=== PATIENT | female | born 1970 | race Caucasian/White ===

== ENCOUNTER → 2016-07-17 | Outpatient (CLI) | payer BC, MEDICAID ==
[~2016-07-17] MED LIST: ALDACTONE; AMPH30CA6 PO; BCP PO; BIRTH CONTROL PILL; CHOL50003 PO; CIPR500T4; CIPR500T78 PO; CODE-54; CPR500T; DCS100C PO; DOCU-143 PO; HYOS0.1218 SL; HYOS0.1283 SL; IBP800T PO; LOSA1TAB23 PO; LVT.05T PO; METR500T PO; METR500T17 PO; MPR22T TP; MTF500T; MTP25TSR; MUPI1OIN5 NS; NABU750T PO; NITR-65 PO; ONDA4TAB8 PO; OXYB5TAB9 PO; OXYC1TAB12 PO; PANT40TA2 PO; PHEN-640 PO; PHEN37.53 PO; PNT40TEC PO; RED600TA PO; SAXA1TBM3 PO; SMXTMP10ML PO; SPIR100T37 PO; SUCR1ORA5 PO; TPR25T PO; TRM50T PO; VITA1TAB17 PO; coconut oil
== END ==
LOC: RAD 08:17
PROVIDERS: ATTEND Nurse Practitioner
DX: M76.72 Peroneal tendinitis, left leg (principal)

== ENCOUNTER → 2016-07-21 | Outpatient (CLI) | payer MEDICAID ==
--- NOTE | 2016-07-21 14:22 | Diagnostic Imaging Report ---
PROCEDURE: CT left lower extremity without contrast. TECHNIQUE: Multiple contiguous axial images were obtained through the left lower extremity without the use of intravenous contrast. Sagittal and coronal reformations were then performed. INDICATION: Left ankle swelling and bruising. COMPARISON: None available. FINDINGS: There is no acute or healing fracture about the ankle. Normal variant os trigonum is present in the posterior aspect of the talus. There is no edema-like attenuation around the os trigonum to suggest impingement in this region. No osteochondral lesion of the talar dome. The peroneal tendons are normal in position. There is suggestion of a small amount of fluid in the common peroneal sheath at the level of the lateral malleolus. The peroneus brevis is intact upon the base of the fifth metatarsal. The peroneus longus is normal where visualized. Distal Achilles tendon is normal by CT. The posterior tibialis, flexor hallucis longus and flexor digitorum longus tendons also appear normal by CT. Anterior extensor tendons are also unremarkable. No ankle joint effusion. The posterior subtalar joint space is well-maintained. No tarsal coalition. Sclerotic focus in the anterior and inferior aspect of the calcaneus is compatible with benign bone island. IMPRESSION: 1. No acute or healing fracture. 2. Suggestion of tenosynovitis of the common peroneal tendon sheath at the level of the lateral malleolus. By CT, the peroneal tendons are otherwise normal in appearance. If patient's symptoms persist and there are not contraindications, MRI of the ankle can better evaluate the soft tissues. Dictated by: Dictated on workstation # [id number]
== END ==
LOC: RAD 13:21
PROVIDERS: ATTEND Nurse Practitioner
DX: M76.72 Peroneal tendinitis, left leg (principal)
CPT/HCPCS: 73700

== ENCOUNTER 2016-08-22 20:55 | Observation (INO) | payer MEDICAID ==
[~2016-08-22] VITALS: Ht 175.3 cm; Wt 154.2 kg
--- NOTE | 2016-08-22 21:04 | ED Chest Pain ---
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 Apparently has been having spells like this of late and is being worked up by her PCP, but has never had an episode as bad as earlier this evening. Spoke c/ Dr. Garcia this PM, and she encouraged her to come in and be seen. Patient states there have some recent concerns regarding possible fibromyalgia, or a tick related illness. 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) Severity/Quality: severe (fatigue) Location: central Radiation: no radiation Activities at Onset: activity (walking into house from car) Prior CP/Workup: no prior cardiac workup Modifying Factors: worse with movement ASA po SURVEY QUESTIONNAIRE DESIGNER: No NTG SL SURVEY QUESTIONNAIRE DESIGNER: No Associated Symptoms: diaphoresis, fatigue, nausea/vomiting (s/ vomiting) Allergies and Home Medications Allergies Coded Allergies: NKANo Known Allergies (Unverified Allergy, Mild, 05/06/09) Home Medications Cholecalciferol 5,000 Unit Tablet, 5,000 UNIT PO DAILY, (Reported) Duloxetine HCl 60 Mg Capsule., #30 (Reported) Estradiol 1 Mg Tablet, #30 (Reported) Hyoscyamine Sulfate 0.125 Mg Tab.subl, 1-2 TAB SL Q4H, #15 Prescribed by: WILLIAM RIBERA on 02/20/162 Levothyroxine Sodium 50 Mcg Tablet, 50 MCG PO DAILY, (Reported) Losartan/Hydrochlorothiazide 1 Each Tablet, 1 EACH PO DAILY, (Reported) Mirabegron 50 Mg Tab.er.24h, #30 (Reported) Montelukast Sodium 10 Mg Tablet, #30 (Reported) Ondansetron 4 Mg Tab.rapdis, 4 MG PO Q4H, #10 Prescribed by: WILLIAM RIBERA on 02/20/16 2222 Pantoprazole Sodium 40 Mg Tablet.dr, 40 MG PO DAILY, #30 Ref 6 Prescribed by: NIK YATES on 12/13/14 0759 Saxagliptin Hcl/Metformin Hcl 1 Each Tbmp.24hr, 1 EACH PO DAILY, (Reported) Sucralfate 1 Gm/10 Ml Oral.susp, 1 GM PO QID, #400 Prescribed by: WILLIAM RIBERA on 02/20/162221 Vitamin B Complex 1 Tab Tablet, 1 TAB PO DAILY, (Reported) Review of Systems Constitutional: see HPI, diaphoresis, malaise Cardiovascular: See HPI, Chest Pain Gastrointestinal: See HPI, Nausea Endocrine: See HPI, Excessive Sweating All Other Systems Reviewed Negative Unless Noted: Yes Past Qwlhacy-Wljfes-Njteuf Hx Patient Social History Recent Foreign Travel: No Contact w/Someone Who Travel: No Recent Hopitalizations: No Seasonal Allergies Seasonal Allergies: No Surgeries HX Surgeries: Yes Surgeries: Bladder Surgery, Hysterectomy, Oophorectomy, Orthopedic, Tonsillectomy Respiratory Hx Respiratory Disorders: No Cardiovascular Hx Cardiac Disorders: Yes Cardiac Disorders: Hypertension Neurological Hx Neurological Disorders: No Reproductive System Hx Reproductive Disorders: No Female Reproductive Disorders: Endometriosis, Polycystic Ovarian Dis 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 Genitourinary Hx Genitourinary Disorders: Yes (has bladder stimulator) Genitourinary Disorders: Bladder Infection, Neurogenic Bladder Gastrointestinal Hx Gastrointestinal Disorders: Yes Gastrointestinal Disorders: Diverticulosis, Ulcer Musculoskeletal Hx Musculoskeletal Disorders: Yes (BACK SX FOR HERNIATED DISC) Musculoskeletal Disorders: Chronic Back Pain Endocrine Hx Endocrine Disorders: Yes (OBESITY) Endocrine Disorders: Hypothyroidsim HEENT HX ENT Disorders: Yes (SURGERY FOR DETATCHED RETINA) Cancer Hx Cancer: No Psychosocial Hx Psychiatric Problems: No Integumentary HX Skin/Integumentary Disorder: No Blood Transfusions Hx Blood Disorders: No Family Medical History Family Medial History: Not obtainable due to adoption Physical Exam Vital Signs Vital Sign - Last 12Hours 08/22/16 21:08 Temp 98.1 Pulse 110 Resp 18 B/P (MAP) 134/101 Pulse Ox 96 O2 Delivery Room Air O2 Flow Rate 2.0 Capillary Refill : General Appearance: No Apparent Distress, WD/WN, Obese HEENT: Normal ENT Inspection Neck: Normal Inspection Respiratory: No Respiratory Distress Cardiovascular: Regular Rate, Rhythm, Tachycardia Gastrointestinal: Non Tender, Other (obese) Rectal: Deferred Neurologic/Psychiatric: Alert, Oriented x3, No Motor/Sensory Deficits, Normal Mood/Affect Skin: Warm/Dry Focused Exam Lactic Acid Level Laboratory Tests Test 08/22/16 21:30 08/22/16 23:49 Lactic Acid Level 2.43 MMOL/L (0.50-2.00) *H 1.03 MMOL/L (0.50-2.00) Progress/Results/Core Measures Results/Orders Lab Results Laboratory Tests Test 08/22/16 21:25 08/22/16 21:30 08/22/16 21:49 08/22/16 23:49 Range/Units Urine Color YELLOW Urine Clarity CLEAR Urine pH 6 5-9 Urine Specific Ericson 1.010 L 1.016-1.022 Urine Protein NEGATIVE NEGATIVE Urine Glucose (UA) NEGATIVE NEGATIVE Urine Ketones NEGATIVE NEGATIVE Urine Nitrite NEGATIVE NEGATIVE Urine Bilirubin 2+ H NEGATIVE Urine Urobilinogen 4 H NORMAL MG/DL Urine Leukocyte Esterase 1+ H NEGATIVE Urine RBC (Auto) NEGATIVE NEGATIVE Urine RBC NONE /HPF Urine WBC 2-5 /HPF Urine Squamous Epithelial Cells 2-5 /HPF Urine Crystals NONE /LPF Urine Bacteria NONE /HPF Urine Casts NONE /LPF Urine Mucus NEGATIVE /LPF Urine Culture Indicated NO White Blood Count 8.6 4.3-11.0 10^3/uL Red Blood Count 4.44 4.35-5.85 10^6/uL Hemoglobin 13.0 11.5-16.0 G/DL Hematocrit 39 35-52 % Mean Corpuscular Volume 89 80-99 FL Mean Corpuscular Hemoglobin 29 25-34 PG Mean Corpuscular Hemoglobin Concent 33 32-36 G/DL Red Cell Distribution Width 14.9 H 10.0-14.5 % Platelet Count 276 130-400 10^3/uL Mean Platelet Volume 10.3 7.4-10.4 FL Neutrophils (%) (Auto) 60 42-75 % Lymphocytes (%) (Auto) 26 12-44 % Monocytes (%) (Auto) 10 0-12 % Eosinophils (%) (Auto) 3 0-10 % Basophils (%) (Auto) 0 0-10 % Neutrophils # (Auto) 5.2 1.8-7.8 X 10^3 Lymphocytes # (Auto) 2.3 1.0-4.0 X 10^3 Monocytes # (Auto) 0.9 0.0-1.0 X 10^3 Eosinophils # (Auto) 0.2 0.0-0.3 10^3/uL Basophils # (Auto) 0.0 0.0-0.1 10^3/uL Erythrocyte Sedimentation Rate 30 H 0-20 MM/HR Sodium Level 140 135-145 MMOL/L Potassium Level 3.5 L 3.6-5.0 MMOL/L Chloride Level 104 98-107 MMOL/L Carbon Dioxide Level 20 L 21-32 MMOL/L Anion Gap 16 H 5-14 MMOL/L Blood Urea Nitrogen 11 7-18 MG/DL Creatinine 1.49 H 0.60-1.30 MG/DL Estimat Glomerular Filtration Rate 38 BUN/Creatinine Ratio 7 Glucose Level 142 H 70-105 MG/DL Lactic Acid Level 2.43 *H 1.03 0.50-2.00 MMOL/L Calcium Level 9.6 8.5-10.1 MG/DL Magnesium Level 2.2 1.8-2.4 MG/DL Total Bilirubin 4.3 H 0.1-1.0 MG/DL Aspartate Amino Transf (AST/SGOT) 197 H 5-34 U/L Alanine Aminotransferase (ALT/SGPT) 316 H 0-55 U/L Alkaline Phosphatase 166 H 40-136 U/L Troponin I < 0.30 <0.30 NG/ML C-Reactive Protein High Sensitivity 2.06 H 0.00-0.50 MG/DL B-Type Natriuretic Peptide 16.2 <100.0 PG/ML Total Protein 7.5 6.4-8.2 G/DL Albumin 4.1 3.2-4.5 G/DL Lipase 10 8-78 U/L Thyroid Stimulating Hormone (TSH) 0.57 0.35-4.94 UIU/ML My Orders Orders - MARK LAGUNAS DO Saline Lock/Iv-Start (08/22/16 21:15) Ekg Tracing (08/22/16 21:15) BNP (08/22/16 21:15) Cbc With Automated Diff (08/22/16 21:15) Comprehensive Metabolic Panel (08/22/16 21:15) Hs C Reactive Protein (08/22/16 21:15) Lactic Acid Analyzer (08/22/16 21:15) Lipase (08/22/16 21:15) Magnesium (08/22/16 21:15) Thyroid Stimulating Hormone (08/22/16 21:15) Tick Panel With Lyme Eia (08/22/16 21:15) Troponin I (08/22/16 21:15) Ua Culture If Indicated (08/22/16 21:15) Blood Culture (08/22/16 21:15) Erythrocyte Sedimentation Rate (08/22/16 21:15) Saline Lock/Iv-Start (08/22/16 22:03) Ns Iv 1000 Ml (Sodium Chloride 0.9%) (08/22/16 22:03) Ct Chest/Abdomen/Pelvis Wo (08/22/16 22:29) Medications Given in ED Current Medications Medications Dose Ordered Sig/Baldemar Route Start Time Stop Time Status Last Admin Dose Admin Sodium Chloride 1,000 ml @ 0 mls/hr Q0M ONCE IV 08/22/16 22:03 08/22/16 22:04 DC 08/22/16 22:10 0 MLS/HR Vital Signs/I&O Vital Sign - Last 12Hours 08/22/16 08/22/16 08/22/16 21:08 21:08 22:00 Temp 98.1 98.1 Pulse 110 98 Resp 18 18 B/P (MAP) 134/101 135/99 Pulse Ox 96 88 O2 Delivery Room Air Nasal Cannula O2 Flow Rate 2.0 2.0 Intake and Output 08/23/16 00:00 Intake Total 1000 ml Balance 1000 ml Diagnostic Imaging Diagonstic Imaging: CT Plain Films/CT/US/NM/MRI: abdomen, pelvis (nothing acute x/ hepatomegaly) Departure Communication Time/Spoke to Admitting Phy: 23:40 Impression Impression: Primary Impression: Fatigue Additional Impressions: Elevated LFT's of UDE Non-cardiac chest pain Elevated lactic acid level Disposition: ADMITTED INPATIENT Condition: Stable Decision to Admit Reason: Admit from ER (General) Decision to Admit/Date: Aug 22, 2016 Time/Decision to Admit Time: 23:40 Departure-Patient Inst. Referrals: TON BOJORQUEZ DO (PCP/Family) Primary Care Physician MARK LAGUNAS DO Aug 22, 2016 21:04
[2016-08-22] MEDS ORDERED: DULO60CA58 (21:08)
[2016-08-22] MEDS ORDERED: MONT10TA24 PO (21:08)
[2016-08-22] MEDS ORDERED: ESTR1TAB24 PO (21:08)
[2016-08-22] MEDS ORDERED: MIRA50TA PO (21:08)
[2016-08-22 21:39] LABS: BASOPHILS % (AUTO) 0 % (0-10); EOSINOPHILS # (AUTO) 0.2 10^3/uL (0.0-0.3); EOSINOPHILS % (AUTO) 3 % (0-10); LYMPHOCYTES # (AUTO) 2.3 X 10^3 (1.0-4.0); LYMPHOCYTES % (AUTO) 26 % (12-44); MEAN CORPUSCULAR HEMOGLOBIN 29 PG (25-34); MEAN CORPUSCULAR HGB CONC 33 G/DL (32-36); MEAN CORPUSCULAR VOLUME 89 FL (80-99); MEAN PLATELET VOLUME 10.3 FL (7.4-10.4); MONOCYTES # (AUTO) 0.9 X 10^3 (0.0-1.0); MONOCYTES % (AUTO) 10 % (0-12); NEUTROPHILS # (AUTO) 5.2 X 10^3 (1.8-7.8); NEUTROPHILS % (AUTO) 60 % (42-75); PLATELET COUNT 276 10^3/uL (130-400); RED BLOOD COUNT 4.44 10^6/uL (4.35-5.85); RED CELL DISTRIBUTION WIDTH 14.9 % (10.0-14.5); WHITE BLOOD COUNT 8.6 10^3/uL (4.3-11.0)
[2016-08-22 21:40] LABS: BILIRUBIN,URINE 2+ (NEGATIVE); KETONES,URINE NEGATIVE (NEGATIVE); LEUKOCYTE ESTERASE ,URINE 1+ (NEGATIVE); NITRITE,URINE NEGATIVE (NEGATIVE); PH,URINE 6 (5-9); PROTEIN,URINE NEGATIVE (NEGATIVE); UROBILINOGEN,URINE 4 MG/DL (NORMAL)
[2016-08-22] MEDS ORDERED: NS IV 1000 ML 1,000 ML IV ONE (22:03)
[2016-08-22 22:09] LABS: ERYTHROCYTE SEDIMENTATION RATE 30 MM/HR (0-20)
[2016-08-22 22:20] LABS: ALANINE AMINOTRANSFERASE 316 U/L (0-55); ALBUMIN 4.1 G/DL (3.2-4.5); ANION GAP 16 MMOL/L (5-14); ASPARTATE AMINO TRANSFERASE 197 U/L (5-34); BILIRUBIN,TOTAL 4.3 MG/DL (0.1-1.0); BLOOD UREA NITROGEN 11 MG/DL (7-18); BUN/CREATININE RATIO 7; CALCIUM 9.6 MG/DL (8.5-10.1); CARBON DIOXIDE 20 MMOL/L (21-32); CHLORIDE 104 MMOL/L (98-107); CREATININE SERUM 1.49 MG/DL (0.60-1.30); GFR ESTIMATED 38; GLUCOSE 142 MG/DL (70-105); LIPASE 10 U/L (8-78); MAGNESIUM 2.2 MG/DL (1.8-2.4); POTASSIUM 3.5 MMOL/L (3.6-5.0); SODIUM 140 MMOL/L (135-145); TOTAL PROTEIN 7.5 G/DL (6.4-8.2); hs C REACTIVE PROTEIN 2.06 MG/DL (0.00-0.50)
[2016-08-22 22:40] LABS: THYROID STIMULATING HORMONE 0.57 UIU/ML (0.35-4.94); TROPONIN I < 0.30 NG/ML (<0.30)
[2016-08-23] MEDS ORDERED: ONDANSETRON 4 MG/2 ML (SDV) Z0FRAN IV PRN (01:45)
[2016-08-23] MEDS: NS W/KCL 20 MEQ/L 1,000 ML IV SCH ×4 (02:00→22:01)
[2016-08-23 04:20] VITALS: BP 121/59
[2016-08-23 06:06] LABS: ALANINE AMINOTRANSFERASE 272 U/L (0-55); ALBUMIN 3.5 G/DL (3.2-4.5); ANION GAP 12 MMOL/L (5-14); ASPARTATE AMINO TRANSFERASE 163 U/L (5-34); BILIRUBIN,TOTAL 3.4 MG/DL (0.1-1.0); BLOOD UREA NITROGEN 8 MG/DL (7-18); BUN/CREATININE RATIO 8; CALCIUM 8.8 MG/DL (8.5-10.1); CARBON DIOXIDE 23 MMOL/L (21-32); CHLORIDE 105 MMOL/L (98-107); CREATININE SERUM 0.97 MG/DL (0.60-1.30); GFR ESTIMATED > 60; GLUCOSE 138 MG/DL (70-105); POTASSIUM 3.6 MMOL/L (3.6-5.0); SODIUM 140 MMOL/L (135-145); TOTAL PROTEIN 6.4 G/DL (6.4-8.2)
[2016-08-23] MEDS: inSUlin (REGULAR) HUMAN 1 UNIT/0.01 ML (CHARGE PER UNIT) SC SCH ×4 (06:11→21:08)
[2016-08-23 08:00] VITALS: BP 132/71
--- NOTE | 2016-08-23 08:53 | History & Physicial ---
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 SHE PRESENTED TO THE EMERGENCY DEPARTMENT WITH ABDOMINAL DISCOMFORT /EPIGASTRIC DISCOMFORT, AND SEVERE WEAKNESS AND FATIGUE. SHE REPORTS THAT SHE HAS BEEN FEELING UNWELL FOR ABOUT 3-4 WEEKS. SHE STATES THAT SHE HAS BEEN SEEN AT URGENT CARE LAST WEEK AND DIAGNOSED WITH A "POSSIBLE" URINARY TRACT INFECTION, STARTED ON BACTRIM DS AND PYRIDIUM, STARTED TO HAVE ITCHING, AND CALLED DR. FERNANDEZ WHO TOLD THE PATIENT TO STOP THE ANTIBIOTIC DUE TO HER SYMPTOMS OF ITCHING. SHE STATES THAT SHE NEVER REALLY HAD URINARY TRACT SYMPTOMS. SHE REPORTS THAT SHE HAD LABS DONE A WEEK OR SO AGO WHICH SHOWED AN ELEVATED WHITE COUNT. SHE DOES NOT RECALL A REPORT OF ELEVATED LIVER ENZYMES. SHE REPORTS THAT HER MEDICATION WAS RECENTLY CHANGED - WITH STOPPING OF HER METFORMIN AND STARTING OF JANUMET INSTEAD. SHE REPORTS THAT SHE IS SUPPOSED TO BE ON CYMBALTA, BUT HAS NOT BEEN ABLE TO AFFORD THE MEDICATION AND HAS NOT BEEN TAKING IT FOR ABOUT 2 MONTHS. SHE COMPLAINS OF SOME ITCHING OF HER SKIN. SHE DENIES ANY ACUTE RASHES. Date of Admission Aug 22, 2016 at 23:50 I consulted on this patient on 08/23/16 08:53 Attending Physician Shweta Fernandez DO Admitting Physician Toney Patino MD Consult Allergies and Home Medications Allergies Coded Allergies: NKANo Known Allergies (Unverified Allergy, Mild, 05/06/09) Home Medications Cholecalciferol 5,000 Unit Tablet, 5,000 UNIT PO DAILY, (Reported) Diclofenac Sod 100 Mg Tab, 100 MG PO BID, (Reported) Duloxetine HCl 60 Mg Capsule., #30 (Reported) Estradiol 1 Mg Tablet, #30 (Reported) Fesoterodine Fumarate 4 Mg Tab.sr.24h, 4 MG PO DAILY, (Reported) Hyoscyamine Sulfate 0.125 Mg Tab.subl, 1-2 TAB SL Q4H, #15 Prescribed by: WILLIAM RIBERA on 02/20/162 Levothyroxine Sodium 50 Mcg Tablet, 50 MCG PO DAILY, (Reported) Losartan/Hydrochlorothiazide 1 Each Tablet, 1 EACH PO DAILY, (Reported) Mirabegron 50 Mg Tab.er.24h, #30 (Reported) Montelukast Sodium 10 Mg Tablet, #30 (Reported) Ondansetron 4 Mg Tab.rapdis, 4 MG PO Q4H, #10 Prescribed by: WILLIAM RIBERA on 02/20/16 2222 Pantoprazole Sodium 40 Mg Tablet.dr, 40 MG PO DAILY, #30 Ref 6 Prescribed by: NIK YATES on 12/13/14 0759 Saxagliptin Hcl/Metformin Hcl 1 Each Tbmp.24hr, 1 EACH PO DAILY, (Reported) Sucralfate 1 Gm/10 Ml Oral.susp, 1 GM PO QID, #400 Prescribed by: WILLIAM RIBERA on 02/20/16 2222 Tramadol HCl 50 Mg Tablet, 50 MG PO q4-6 PRN for PAIN-MILD TO MODERATE, ( Reported) Vitamin B Complex 1 Tab Tablet, 1 TAB PO DAILY, (Reported) Past Xnzbbok-Mjmvbx-Sotayq Hx Patient Social History Marrital Status: Living Status: LIVES AT HOME WITH HER SPOUSE Employed/Student: employed (WORKS AT [employer]) Alcohol Use: Denies Use Recreational Drug Use: No Smoking Status: Never a Smoker 2nd Hand Smoke Exposure: Yes (AT WORK) Physical Abuse Screen: No Sexual Abuse: No Recent Foreign Travel: No Contact w/other who traveled: No Recent Hopitalizations: No Recent Infectious Disease Expo: No Immunizations Up To Date Tetanus Booster (TDap): Less than 5yrs Seasonal Allergies Seasonal Allergies: No Surgeries HX Surgeries: Yes Surgeries: Bladder Surgery, Hysterectomy, Oophorectomy, Orthopedic, Tonsillectomy Respiratory Hx Respiratory Disorders: No Cardiovascular Hx Cardiovascular Disorders: Yes Cardiac Disorders: Hypertension Neurological Hx Neurological Disorders: No Reproductive System : No Hx Reproductive Disorders: No Female Reproductive Disorders: Endometriosis, Polycystic Ovarian Dis 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 Genitourinary Hx Genitourinary Disorders: Yes (has bladder stimulator) Genitourinary Disorders: Bladder Infection, Neurogenic Bladder Gastrointestinal Hx Gastrointestinal Disorders: Yes Gastrointestinal Disorders: Diverticulosis, Ulcer Musculoskeletal Hx Musculoskeletal Disorders: Yes (BACK SX FOR HERNIATED DISC) Musculoskeletal Disorders: Chronic Back Pain Endocrine Hx Endocrine Disorders: Yes (OBESITY) Endocrine Disorders: Hypothyroidsim, Diabetes, Non-Insulin dep HEENT HX ENT Disorders: Yes (SURGERY FOR DETATCHED RETINA) Loss of Vision: Denies Hearing Impairment: Denies Cancer Hx Cancer: No Psychosocial Hx Psychiatric Problems: Yes Behavioral Health Disorders: Depression Integumentary HX Skin/Integumentary Disorder: No Blood Transfusions Hx Blood Disorders: No Adverse Reaction to a Blood Tr: No Reviewed Nursing Assessment Reviewed/Agree w Nursing PMH: Yes Family Medical History Significant Family History: Other Conditions/Hx (PT ADOPTED, NO FAMILY HISTORY AVAILABLE) Family Hx: Not obtainable due to adoption Constitutional: No chills, malaise, weakness EENTM: No blurred vision, No double vision, No hoarseness, No mouth pain, No throat pain Respiratory: No cough, No dyspnea on exertion, No short of breath, No wheezing Cardiovascular: No chest pain, No palpitations Gastrointestinal: abdominal pain (RUQ), No constipation, No diarrhea, No loss of appetite, No melena, No nausea, No vomiting Genitourinary: no symptoms reported, No dysuria, No frequency : No Musculoskeletal: No back pain, No muscle stiffness, muscle weakness Skin: change in color (SLIGHTLY YELLOW), No dryness, No lesions, pruritus, No rash Psychiatric/Neurological: Denies Anxiety, Denies Headache, Denies Numbness, Weakness All Other Systems Reviewed Negative Unless Noted: Yes Physical Exam Vital Signs Vital Sign - Last 12Hours 08/22/16 21:08 Temp 98.1 Pulse 110 Resp 18 B/P (MAP) 134/101 Pulse Ox 96 O2 Delivery Room Air O2 Flow Rate 2.0 Capillary Refill : Less Than 3 Seconds General Appearance: No Apparent Distress, WD/WN, Obese Eyes: Bilateral Eye EOMI, Bilateral Eye Normal Inspection, Bilateral Eye PERRL HEENT: PERRL/EOMI, Pharynx Normal Neck: Full Range of Motion, Supple Respiratory: Chest Non Tender, Lungs Clear, Normal Breath Sounds, No Accessory Muscle Use, No Respiratory Distress Cardiovascular: Regular Rate, Rhythm, No Edema, No Murmur Gastrointestinal: Normal Bowel Sounds, Hepatomegaly, Tenderness (IN RIGHT UPPER QUADRANT, EPIGASTRIUM) Rectal: Deferred Back: Normal Inspection, No CVA Tenderness, No Vertebral Tenderness Extremity: Normal Capillary Refill, Normal Range of Motion, Non Tender, No Calf Tenderness, No Pedal Edema Neurologic/Psychiatric: Alert, Oriented x3, No Motor/Sensory Deficits, Normal 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, 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 HER CT SCAN FINDINGS HAVE NOT YET BEEN FINALIZED ON THE COMPUTER SYSTEM. FATIGUE AND MUSCLE WEAKNESS - SHOULD IMPROVE WITH PATIENT'S HYDRATION, AND IMPROVEMENT OF LIVER ENZYMES. HYPERTENSION - HOLD CURRENT MEDICATION, WILL START ON METFORMIN IF ANTIHYPERTENSIVE MEDICATION IS NEEDED HER CURRENT MEDICATION HAS HEPATIC METABOLISM. DEPRESSION - PT HAS NOT BEEN TAKING HER CYMBALTA, THE METABOLISM IS THROUGH LIVER ENZYME PATHWAYS, THEREFORE, WOULD NOT RESTART AT THIS TIME. URINARY URGE INCONTINENCE - HOLD MYRBETRIQ IT MAY BE HAVING SOME IMPACT ON HEPATIC FAILURE - MONITOR SYMPTOMS, MAY CONSIDER OTHER MEDICATIONS DEPENDING ON METABOLISM AND HER LIVER SYMPTOMS. DIABETES MELLITUS - HOLD DIABETIC MEDICATIONS AT THIS TIME, WITH PT ON LIQUID DIET, MONITOR FSBS, HGBA1C PENDING, IF NEEDED WILL CONSIDER SLIDING SCALE INSULIN. Problems: Admission Diagnosis RIGHT UPPER QUADRANT PAIN ELEVATED LIVER ENZYMES HYPERBILIRUBINEMIA HEPATOMEGALY FATIGUE MUSCLE WEAKNESS ELEVATED LACTIC ACID HYPERTENSION DEPRESSION URINARY URGE INCONTINENCE DIABETES MELLITUS Clinical Quality Measures AMI/AHF: ASA po Prior to arrival: No DVT/VTE Risk/Contraindication: Risk Factor Score Per Nursin RFS Level Per Nursing on Admit: 3=High TONEY PATINO MD Aug 23, 2016 08:53
--- NOTE | 2016-08-23 09:18 | Diagnostic Imaging Report ---
PROCEDURE: CT chest, abdomen, and pelvis without contrast. TECHNIQUE: Multiple contiguous axial images were obtained through the chest, abdomen, and pelvis without the use of intravenous contrast. INDICATION: Chest pain, fatigue, and weakness. COMPARISON: Comparison is made with the prior study from February 20, 2016. FINDINGS: The lungs demonstrate no evidence of a focal consolidation. There is some minor dependent atelectasis at the lung bases. There is no effusion or pneumothorax. There is no evidence of mediastinal adenopathy. The thoracic aorta is normal in caliber and heart size appears normal. There is no pericardial effusion. Hepatomegaly is present with associated steatosis. There is some focal fatty sparing adjacent to the gallbladder. There is no radiodense gallstone or evidence of biliary dilatation. The spleen is unremarkable. There are some small splenules. Pancreas demonstrates some mild atrophy but no focal abnormality. There is stable right adrenal nodule. The kidneys appear nonobstructed without evidence of urolithiasis. There is extensive diverticulosis present with some haziness within the fat about the sigmoid colon which may reflect a mild diverticulitis or colitis. There is no free air, free fluid, or abscess. The appendix is normal. Patient is status post hysterectomy. Urinary bladder is unremarkable. No pathologically enlarged abdominal or pelvic lymph nodes are demonstrated. The aorta is normal in caliber. There are degenerative features within the lumbar spine, but there is no acute or suspicious osseous abnormality demonstrated. A sacral InterStim device is noted. There is a small fat-containing umbilical hernia. IMPRESSION: 1. No acute process is evident within the chest. 2. Extensive colonic diverticulosis with mild haziness around the sigmoid colon suggesting a mild diverticulitis or colitis. There is no free air, free fluid, abscess, or obstruction. 3. Hepatic steatosis and hepatomegaly. 4. Status post previous hysterectomy. 5. Stable right adrenal nodule. Dictated by: Dictated on workstation # [id number]
[2016-08-23 09:32] LABS: THYROID STIMULATING HORMONE 0.46 UIU/ML (0.35-4.94)
[2016-08-23] MEDS ORDERED: FESO4TAB PO (10:03)
[2016-08-23] MEDS ORDERED: NF-DICLOTA PO (10:03)
[2016-08-23] MEDS ORDERED: TRAM-42 PO (10:03)
[2016-08-23] MEDS: ENOXAPARIN 40 MG/0.4 ML (LOVENOX) SYR SC SCH (11:21)
[2016-08-23 12:00] VITALS: BP 124/59
--- NOTE | 2016-08-23 15:41 | Diagnostic Imaging Report ---
PROCEDURE: US Gallbladder. TECHNIQUE: Multiple real-time grayscale images were obtained over the right upper quadrant in various projections. INDICATION: Right upper quadrant pain. COMPARISON: CT chest, abdomen and pelvis without contrast 08/22/2016. FINDINGS: Examination limited by technical limitations related to tissue depth. Hyperechogenicity of the liver consistent with diffuse fatty infiltration. No focal mass or fluid collection in the liver identified. No cholelithiasis. Gallbladder wall thickness measures approximately 2 mm. No pericholecystic fluid collection. The common bile duct and pancreas are obscured. Right kidney is partially visualized and measures approximately 11.5 cm. No evidence of hydronephrosis. Negative sonographic García sign. No free fluid identified in the visualized abdomen. IMPRESSION: 1. Limited examination. 2. Hepatic steatosis. 3. The gallbladder is unremarkable. The common bile duct is obscured. Dictated by: Dictated on workstation # [id number]
[2016-08-23 16:00] VITALS: BP 135/83
[2016-08-23 20:00] VITALS: BP 135/86
[2016-08-23] MEDS: fentaNYL INJECTION 100 MCG/2 ML AMP IVP PRN (21:57)
[2016-08-24] VITALS: BP 122/70
[2016-08-24 04:00] VITALS: BP 119/57
[2016-08-24] MEDS: NS W/KCL 20 MEQ/L 1,000 ML IV SCH ×4 (04:47→19:23)
[2016-08-24 04:55] LABS: MEAN PLATELET VOLUME 10.8 FL (7.4-10.4); RED BLOOD COUNT 4.06 10^6/uL (4.35-5.85); RED CELL DISTRIBUTION WIDTH 15.2 % (10.0-14.5); WHITE BLOOD COUNT 6.3 10^3/uL (4.3-11.0)
[2016-08-24 05:15] LABS: ALANINE AMINOTRANSFERASE 222 U/L (0-55); ALBUMIN 3.1 G/DL (3.2-4.5); ANION GAP 8 MMOL/L (5-14); ASPARTATE AMINO TRANSFERASE 105 U/L (5-34); BILIRUBIN,TOTAL 2.9 MG/DL (0.1-1.0); BLOOD UREA NITROGEN 4 MG/DL (7-18); BUN/CREATININE RATIO 6; CALCIUM 8.5 MG/DL (8.5-10.1); CARBON DIOXIDE 24 MMOL/L (21-32); CHLORIDE 108 MMOL/L (98-107); CREATININE SERUM 0.67 MG/DL (0.60-1.30); GFR ESTIMATED > 60; GLUCOSE 113 MG/DL (70-105); POTASSIUM 4.2 MMOL/L (3.6-5.0); SODIUM 140 MMOL/L (135-145)
[2016-08-24] MEDS: inSUlin (REGULAR) HUMAN 1 UNIT/0.01 ML (CHARGE PER UNIT) SC SCH ×4 (05:43→21:52)
[2016-08-24 08:00] VITALS: BP 150/102
--- NOTE | 2016-08-24 08:29 | Progress Note (SOAP) ---
Subjective Date Seen by Provider: Aug 24, 2016 Time Seen by Provider: 08:29 Subjective/Events-last exam PT REPORTS THAT SHE IS FEELING BETTER. SHE STATES THAT SHE STILL HAS SOME ABDOMINAL PAIN - PAIN IN EPIGASTRIUM. Review of Systems General: Fatigue Pulmonary: No Dyspnea, No Cough Cardiovascular: No: Chest Pain Gastrointestinal: Abdominal Pain (EPIGASTRIUM), No: Nausea Neurological: Weakness, No: Confusion Objective Exam Vital Signs Date Time Temp Pulse Resp B/P (MAP) Pulse Ox O2 Delivery O2 Flow Rate FiO2 08/24/16 07:00 81 08/24/16 04:00 97.3 70 18 119/57 95 08/24/16 01:00 95 08/24/16 00:00 98.2 92 18 122/70 94 08/23/16 20:00 97.3 81 18 135/86 97 08/23/16 19:00 102 08/23/16 16:00 98.0 55 18 135/83 95 08/23/16 13:00 83 08/23/16 12:00 96.6 71 20 124/59 94 I & O 08/24/16 07:00 Intake Total 1860 ml Output Total 2325 ml Balance -465 ml Capillary Refill : Less Than 3 Seconds General Appearance: No Apparent Distress, WD/WN HEENT: PERRL/EOMI, Pharynx Normal Neck: Full Range of Motion, Supple Respiratory: Chest Non Tender, Lungs Clear, Normal Breath Sounds, No Accessory Muscle Use Cardiovascular: Regular Rate, Rhythm, No Edema Gastrointestinal: normal bowel sounds, soft, tenderness (EPIGASTRIUM) Neurologic/Psychiatric: Alert, Oriented x3, No Motor/Sensory Deficits, Normal Mood/Affect Skin: Warm/Dry Lymphatic: No Adenopathy Results Lab Laboratory Tests 08/23/16 10:37: Glucometer 169H 08/23/16 15:27: Glucometer 115H 08/23/16 21:06: Glucometer 159H 08/24/16 04:05: White Blood Count 6.3, Red Blood Count 4.06L, Hemoglobin 11.8, Hematocrit 37, Mean Corpuscular Volume 90, Mean Corpuscular Hemoglobin 29, Mean Corpuscular Hemoglobin Concent 32, Red Cell Distribution Width 15.2H, Platelet Count 213, Mean Platelet Volume 10.8H, Sodium Level 140, Potassium Level 4.2, Chloride Level 108H, Carbon Dioxide Level 24, Anion Gap 8, Blood Urea Nitrogen 4L, Creatinine 0.67, Estimat Glomerular Filtration Rate > 60, BUN/Creatinine Ratio 6 , Glucose Level 113H, Calcium Level 8.5, Total Bilirubin 2.9H, Aspartate Amino Transf (AST/SGOT) 105H, Alanine Aminotransferase (ALT/SGPT) 222H, Alkaline Phosphatase 141H, Total Protein 6.0L, Albumin 3.1L 08/24/16 05:08: Glucometer 120H Microbiology 08/22/16 Blood Culture - Preliminary, Resulted No growth Assessment/Plan Assessment/Plan Assess & Plan/Chief Complaint RIGHT UPPER QUADRANT PAIN ELEVATED LIVER ENZYMES HYPERBILIRUBINEMIA HEPATOMEGALY FATIGUE MUSCLE WEAKNESS ELEVATED LACTIC ACID HYPERTENSION DEPRESSION URINARY URGE INCONTINENCE DIABETES MELLITUS RIGHT UPPER QUADRANT PAIN, ELEVATED LIVER ENZYMES, HYPERBILIRUBINEMIA, HEPATOMEGALY, ELEVATED LACTIC ACID - PT ADMITTED TO THE HOSPITAL WITH ELEVATED LIVER ENZYMES, HEPATOMEGALY AND HYPERBILIRUBINEMIA - WITH HER RIGHT UPPER QUADRANT PAIN, I HAVE ORDERED A GALLBLADDER ULTRASOUND - WHICH WAS NEGATIVE. HER CT SCAN FINDINGS SHOW A POSSIBLE DIVERTICULITIS - STARTED ON FLAGYL. FATIGUE AND MUSCLE WEAKNESS - SHOULD CONTINUE TO IMPROVE WITH PATIENT'S HYDRATION, AND IMPROVEMENT OF LIVER ENZYMES. HYPERTENSION - HOLD CURRENT MEDICATION, WILL START ON METOPROLOL DEPRESSION - PT HAS NOT BEEN TAKING HER CYMBALTA, THE METABOLISM IS THROUGH LIVER ENZYME PATHWAYS, THEREFORE, WOULD NOT RESTART AT THIS TIME. URINARY URGE INCONTINENCE - HOLD MYRBETRIQ IT MAY BE HAVING SOME IMPACT ON HEPATIC FAILURE - MONITOR SYMPTOMS, MAY CONSIDER OTHER MEDICATIONS DEPENDING ON METABOLISM AND HER LIVER SYMPTOMS. DIABETES MELLITUS - HOLD DIABETIC MEDICATIONS AT THIS TIME, WITH PT ON LIQUID DIET, MONITOR FSBS, HGBA1C 5.8 Clinical Quality Measures AMI/AHF: ASA po Prior to arrival: No DVT/VTE Risk/Contraindication: Risk Factor Score Per Nursin RFS Level Per Nursing on Admit: 3=High TONEY PATINO MD Aug 24, 2016 08:29
[2016-08-24] MEDS: ESTRADIOL 1 MG TAB (ESTRACE) PO SCH (09:15)
[2016-08-24] MEDS: LEVOTHYROXINE 50 MCG (LEVOTHROID) TAB PO SCH (09:15)
[2016-08-24] MEDS: metroNIDAZOLE 500MG/100ML IVPB 100 ML IV SCH ×2 (09:15→21:51)
[2016-08-24] MEDS: ENOXAPARIN 40 MG/0.4 ML (LOVENOX) SYR SC SCH (09:16)
[2016-08-24 12:00] VITALS: BP 139/74
[2016-08-24 15:55] VITALS: BP 162/92
[2016-08-24] MEDS: SUCRALFATE 1 GM (CARAFATE) TAB PO SCH ×2 (16:20→21:50)
[2016-08-24 19:51] VITALS: BP 176/95
[2016-08-24] MEDS: fentaNYL INJECTION 100 MCG/2 ML AMP IVP PRN (21:51)
[2016-08-24] MEDS: PANTOPRAZOLE 40 MG/10 ML (PROTONIX) VIAL IV SCH (21:51)
[2016-08-25] VITALS: BP 144/82
[2016-08-25] MEDS: NS W/KCL 20 MEQ/L 1,000 ML IV SCH (03:11)
[2016-08-25 04:00] VITALS: BP 146/85
[2016-08-25 05:09] LABS: MEAN PLATELET VOLUME 10.8 FL (7.4-10.4); RED BLOOD COUNT 3.97 10^6/uL (4.35-5.85); RED CELL DISTRIBUTION WIDTH 14.9 % (10.0-14.5); WHITE BLOOD COUNT 7.4 10^3/uL (4.3-11.0)
[2016-08-25 05:32] LABS: ALANINE AMINOTRANSFERASE 170 U/L (0-55); ALBUMIN 3.2 G/DL (3.2-4.5); ANION GAP 10 MMOL/L (5-14); ASPARTATE AMINO TRANSFERASE 58 U/L (5-34); BILIRUBIN,TOTAL 1.6 MG/DL (0.1-1.0); BLOOD UREA NITROGEN 9 MG/DL (7-18); BUN/CREATININE RATIO 14; CALCIUM 8.6 MG/DL (8.5-10.1); CARBON DIOXIDE 21 MMOL/L (21-32); CHLORIDE 107 MMOL/L (98-107); CREATININE SERUM 0.65 MG/DL (0.60-1.30); GFR ESTIMATED > 60; GLUCOSE 131 MG/DL (70-105); POTASSIUM 4.1 MMOL/L (3.6-5.0); SODIUM 138 MMOL/L (135-145); TOTAL PROTEIN 6.1 G/DL (6.4-8.2)
[2016-08-25] MEDS: SUCRALFATE 1 GM (CARAFATE) TAB PO SCH ×4 (05:54→21:10)
[2016-08-25] MEDS: inSUlin (REGULAR) HUMAN 1 UNIT/0.01 ML (CHARGE PER UNIT) SC SCH ×4 (05:55→21:10)
[2016-08-25 08:00] VITALS: BP 145/79
--- NOTE | 2016-08-25 08:43 | Progress Note (SOAP) ---
Subjective Date Seen by Provider: Aug 25, 2016 (n) Time Seen by Provider: 08:38 Subjective/Events-last exam F/U colitis, fatigue, elevated liver enzymes c/o fatigue and RUQ pain Review of Systems General: Fatigue HEENT: No Head Aches, No Visual Changes, No Eye Pain, No Ear Pain, No Dysphasia , No Sinus Congestion, No Post Nasal Drip, No Sore Throat, No Other Pulmonary: No Dyspnea, No Cough, No Pleuritic Chest Pain, No Other Cardiovascular: No: Chest Pain, Edema, Lt Headedness, Orthopnea, Other, Palpitations, Paroxysmal Noc. Dyspnea Gastrointestinal: Abdominal Pain Genitourinary: Frequency Musculoskeletal: No: arm pain, back pain, foot pain, hand pain, leg pain, neck pain, other, shoulder pain Neurological: Weakness Objective Exam Vital Signs Date Time Temp Pulse Resp B/P (MAP) Pulse Ox O2 Delivery O2 Flow Rate FiO2 08/25/16 04:00 96.9 70 20 146/85 92 08/25/16 01:00 94 08/25/16 00:00 97.3 100 18 144/82 93 08/24/16 20:00 93 08/24/16 19:51 97.1 77 20 176/95 97 08/24/16 19:00 76 08/24/16 15:55 97.5 74 20 162/92 97 08/24/16 13:00 77 08/24/16 12:00 97.7 72 20 139/74 96 I & O 08/25/16 07:00 Intake Total 1780 ml Output Total 4150 ml Balance -2370 ml Capillary Refill : Less Than 3 Seconds General Appearance: No Apparent Distress HEENT: PERRL/EOMI Neck: No Full Range of Motion, No Normal Inspection, No Non Tender, No Supple, No Carotid Bruit, No JVD, No Limited Range of Motion, No Lymphadenopathy (L), No Lymphadenopathy (R), No Tender Lateral, No Tender Midline, No Thyromegaly, No Other Respiratory: Lungs Clear Cardiovascular: Regular Rate, Rhythm Gastrointestinal: normal bowel sounds, soft, tenderness (RUQ and LUQ) Extremity: No Normal Capillary Refill, No Normal Inspection, No Normal Range of Motion, No Non Tender, No No Calf Tenderness, No No Pedal Edema, No Calf Tenderness, No Inflammation, No Pedal Edema, No Pelvis Stable, No Slow Capillary Refill, No Swelling, No Other Neurologic/Psychiatric: Alert Skin: Normal Color, Warm/Dry Results Lab Laboratory Tests 08/24/16 11:38: Glucometer 190H 08/24/16 15:36: Glucometer 112H 08/24/16 21:06: Glucometer 150H 08/25/16 04:54: White Blood Count 7.4, Red Blood Count 3.97L, Hemoglobin 11.4L, Hematocrit 36, Mean Corpuscular Volume 91, Mean Corpuscular Hemoglobin 29, Mean Corpuscular Hemoglobin Concent 32, Red Cell Distribution Width 14.9H, Platelet Count 186, Mean Platelet Volume 10.8H, Sodium Level 138, Potassium Level 4.1, Chloride Level 107, Carbon Dioxide Level 21, Anion Gap 10, Blood Urea Nitrogen 9, Creatinine 0.65, Estimat Glomerular Filtration Rate > 60, BUN/Creatinine Ratio 14, Glucose Level 131H, Calcium Level 8.6, Total Bilirubin 1.6H, Aspartate Amino Transf (AST/SGOT) 58H, Alanine Aminotransferase (ALT/SGPT) 170H, Alkaline Phosphatase 127, Total Protein 6.1L, Albumin 3.2 Microbiology 08/22/16 Blood Culture - Preliminary, Resulted No growth Assessment/Plan Assessment/Plan Assess & Plan/Chief Complaint 1) Colitis- d/c ABX as appears to be viral etiology, D/C IVF 2) Fatigue- improving 3) Elevated liver enzymes- improving Hepatitis and Tick panel pending. 4) Possible discharge-pending finals on both cultures Clinical Quality Measures AMI/AHF: ASA po Prior to arrival: No DVT/VTE Risk/Contraindication: Risk Factor Score Per Nursin RFS Level Per Nursing on Admit: 3=High TON BOJORQUEZ DO Aug 25, 2016 08:42
[2016-08-25] MEDS: PANTOPRAZOLE 40 MG/10 ML (PROTONIX) VIAL IV SCH ×2 (09:57→21:11)
[2016-08-25] MEDS: ENOXAPARIN 40 MG/0.4 ML (LOVENOX) SYR SC SCH (10:00)
[2016-08-25] MEDS: LEVOTHYROXINE 50 MCG (LEVOTHROID) TAB PO SCH (10:00)
[2016-08-25] MEDS: ESTRADIOL 1 MG TAB (ESTRACE) PO SCH (10:01)
[2016-08-25] MEDS ORDERED: LEVO75TA6 PO (11:33)
[2016-08-25] MEDS ORDERED: CNC1KV INJ (11:33)
[2016-08-25] MEDS ORDERED: PANT40TA3 PO (11:33)
[2016-08-25] MEDS ORDERED: NALT1TAB PO (11:33)
[2016-08-25] MEDS ORDERED: SITA1TBM7 PO (11:33)
[2016-08-25] MEDS ORDERED: SPIR100T2 PO (11:33)
[2016-08-25 12:00] VITALS: BP 154/99
[2016-08-25 15:55] VITALS: BP 138/88
[2016-08-25 20:00] VITALS: BP 138/92
[2016-08-26 00:10] VITALS: BP 137/92
[2016-08-26 04:05] VITALS: BP 136/79
[2016-08-26 05:11] LABS: BASOPHILS # (AUTO) 0.1 10^3/uL (0.0-0.1); BASOPHILS % (AUTO) 1 % (0-10); EOSINOPHILS # (AUTO) 0.5 10^3/uL (0.0-0.3); EOSINOPHILS % (AUTO) 5 % (0-10); LYMPHOCYTES % (AUTO) 30 % (12-44); MEAN CORPUSCULAR HEMOGLOBIN 29 PG (25-34); MEAN CORPUSCULAR HGB CONC 33 G/DL (32-36); MEAN CORPUSCULAR VOLUME 90 FL (80-99); MEAN PLATELET VOLUME 11.2 FL (7.4-10.4); MONOCYTES # (AUTO) 0.7 X 10^3 (0.0-1.0); MONOCYTES % (AUTO) 7 % (0-12); NEUTROPHILS # (AUTO) 5.7 X 10^3 (1.8-7.8); NEUTROPHILS % (AUTO) 58 % (42-75); PLATELET COUNT 219 10^3/uL (130-400); RED BLOOD COUNT 4.11 10^6/uL (4.35-5.85); RED CELL DISTRIBUTION WIDTH 14.9 % (10.0-14.5); WHITE BLOOD COUNT 9.9 10^3/uL (4.3-11.0)
[2016-08-26 05:41] LABS: ALANINE AMINOTRANSFERASE 137 U/L (0-55); ALBUMIN 3.4 G/DL (3.2-4.5); ANION GAP 10 MMOL/L (5-14); ASPARTATE AMINO TRANSFERASE 43 U/L (5-34); BILIRUBIN,TOTAL 1.3 MG/DL (0.1-1.0); BLOOD UREA NITROGEN 13 MG/DL (7-18); BUN/CREATININE RATIO 20; CALCIUM 9.3 MG/DL (8.5-10.1); CARBON DIOXIDE 25 MMOL/L (21-32); CHLORIDE 105 MMOL/L (98-107); CREATININE SERUM 0.66 MG/DL (0.60-1.30); GFR ESTIMATED > 60; GLUCOSE 130 MG/DL (70-105); SODIUM 140 MMOL/L (135-145); TOTAL PROTEIN 6.4 G/DL (6.4-8.2)
[2016-08-26] MEDS: inSUlin (REGULAR) HUMAN 1 UNIT/0.01 ML (CHARGE PER UNIT) SC SCH ×2 (06:02→11:23)
[2016-08-26] MEDS: SUCRALFATE 1 GM (CARAFATE) TAB PO SCH ×2 (06:13→10:48)
[2016-08-26 07:36] LABS: TULAREMIA ANTIBODY <1:20
[2016-08-26 08:00] VITALS: BP 149/82
--- NOTE | 2016-08-26 08:56 | Discharge Inst-Simple/Standard ---
Discharge Inst-Standard Patient Instructions/Follow Up Plan of Care/Instructions/FU: Fwup 1 week Activity as Tolerated: Yes Discharge Diet: ADA Diet, Cardiac Diet Other Inst to Patient May return to work on 08/28/16 TON BOJORQUEZ DO Aug 26, 2016 8:56 am
[2016-08-26] MEDS: ESTRADIOL 1 MG TAB (ESTRACE) PO SCH (10:47)
[2016-08-26] MEDS: PANTOPRAZOLE 40 MG/10 ML (PROTONIX) VIAL IV SCH (10:47)
[2016-08-26] MEDS: LEVOTHYROXINE 50 MCG (LEVOTHROID) TAB PO SCH (10:47)
[2016-08-26] MEDS: ENOXAPARIN 40 MG/0.4 ML (LOVENOX) SYR SC SCH (10:48)
[2016-08-26 10:54] LABS: LYME AB G M < 0.01 Index (0.00-0.89)
[2016-08-26 12:00] VITALS: BP 113/90
--- NOTE | 2016-08-26 13:10 | Discharge Summary ---
Diagnosis/Chief Complaint Date of Admission Aug 23, 2016 at 8:52 am Date of Discharge Discharge Date: Aug 26, 2016 Admission Diagnosis Admission Diagnosis RIGHT UPPER QUADRANT PAIN ELEVATED LIVER ENZYMES HYPERBILIRUBINEMIA HEPATOMEGALY FATIGUE MUSCLE WEAKNESS ELEVATED LACTIC ACID HYPERTENSION DEPRESSION URINARY URGE INCONTINENCE DIABETES MELLITUS Discharge Diagnosis 1. Acute Gastroenteritis/Colitis secondary to viral syndrome with elevated LFTs --improving 2. Fatigue--due to acute viral syndrome 3. Hypertension--stable 4. Diabetes mellitus II--BS stable 5. Urinary Incontinence--worsened with IVFs and holding of meds 6. Morbid Obesity--looking into bariatric surgery Discharge Summary Hospital Course Hospital Course This is a 46 year old female who presented to the emergency room with fatigue, nausea and worsening abdominal pain. She was found to have colitis on CT scan of the abdomen and pelvis and elevated liver enzymes. She was admitted and started on Levaquin and Flagyl as well as IVF rehydration for possible early diverticulitis. However, with a normal WBC count and no fever, I stopped the antibiotics the day prior to discharge as her clinical picture looked like a viral syndrome. Her liver enzymes were coming down every day with a high on admission of 197 on AST, 316 on ALT, and 4.3 on bilirubin. They were down to 43 , 137, and 1.3 respectively on the day of discharge. She was tolerating a regular diet with no nausea and no abdominal pain. She was afebrile and her WBC count was normal. She still complained of fatigue. Her hepatitis panel was negative and her tick titers are pending but she has not been on any doxycycline and is clinically improving so I suspect they will be negative. She will be sent home with supportive care and fwup with me in my office in 1 week with recheck of liver enzymes and CBC. Labs Laboratory Tests 08/23/16 15:27: Glucometer 115H 08/23/16 21:06: Glucometer 159H 08/24/16 04:05: Red Blood Count 4.06L, Red Cell Distribution Width 15.2H, Mean Platelet Volume 10.8H, Chloride Level 108H, Blood Urea Nitrogen 4L, Glucose Level 113H, Total Bilirubin 2.9H, Aspartate Amino Transf (AST/SGOT) 105H, Alanine Aminotransferase (ALT/SGPT) 222H, Alkaline Phosphatase 141H, Total Protein 6.0L , Albumin 3.1L 08/24/16 05:08: Glucometer 120H 08/24/16 11:38: Glucometer 190H 08/24/16 15:36: Glucometer 112H 08/24/16 21:06: Glucometer 150H 08/25/16 04:54: Red Blood Count 3.97L, Hemoglobin 11.4L, Red Cell Distribution Width 14.9H, Mean Platelet Volume 10.8H, Glucose Level 131H, Total Bilirubin 1.6H, Aspartate Amino Transf (AST/SGOT) 58H, Alanine Aminotransferase (ALT/SGPT) 170H, Total Protein 6.1L 08/25/16 10:58: Glucometer 170H 08/25/16 15:57: Glucometer 146H 08/25/16 21:02: Glucometer 172H 08/26/16 04:40: Red Blood Count 4.11L, Red Cell Distribution Width 14.9H, Mean Platelet Volume 11.2H, Eosinophils # (Auto) 0.5H, Glucose Level 130H, Total Bilirubin 1.3H, Aspartate Amino Transf (AST/SGOT) 43H, Alanine Aminotransferase (ALT/SGPT) 137H 08/26/16 05:46: Glucometer 119H 08/26/16 11:06: Glucometer 180H Procedures None. Discharge Physical Examination Allergies: Coded Allergies: sulfamethoxazole (Verified Adverse Reaction, Intermediate, RASH/ITCHING, ) trimethoprim (Verified Adverse Reaction, Intermediate, RASH/ITCHING, ) Vitals & I&Os Vital Signs Date Time Temp Pulse Resp B/P (MAP) Pulse Ox O2 Delivery O2 Flow Rate FiO2 08/26/16 08:00 97.9 68 16 149/82 96 08/22/16 22:00 2.0 08/22/16 21:08 Nasal Cannula General Appearance: Alert, Oriented X3, Cooperative, No Acute Distress Respiratory: Clear to Auscultation Cardiovascular: Regular Rate Abdominal: Normal Bowel Sounds, Soft, Other (mild RUQ tenderness) Extremities: No Clubbing, No Cyanosis Skin: No Rashes Neuro: Normal Gait, Normal Speech Psych/Mental Status: Mental Status NL Discharge Home Medications Reviewed and agree with Discharge Medication list on patient's Discharge Instruction sheet Instructions to Patient/Family Please see electonic discharge instructions given to patient. Clinical Quality Measures AMI/AHF: ASA po Prior to arrival: No DVT/VTE Risk/Contraindication: Risk Factor Score Per Nursin RFS Level Per Nursing on Admit: 3=High TON BOJORQUEZ DO Aug 26, 2016 1:10 pm
[2016-08-26 13:33] VITALS: BP 113/90
[2016-08-26 14:58] LABS: LYME AB INTERP Negative (Negative)
[2016-08-26 15:21] LABS: EHRLICHIA CHAFFEENSIS G ABY <1:16 (<1:16)
[2016-08-26 15:23] LABS: IGG ROCKY MOUNTAIN SPOTTED FEV <1:16 (<1:16); IGM ROCKY MOUNTAIN SPOTTED FEV <1:10 (<1:10)
== END 2016-08-26 08:54 | disposition home or self-care (01) ==
LOC: EDUNIT# 20:55 → ER 20:56 → UNDOADMOB 23:50 → 4TH 23:50 → OBSVTOIN 08-23 08:52 → INTOOBSV 08-23 08:52
PROVIDERS: ADMIT Family Medicine; ATTEND Family Medicine
DX: A08.4 Viral intestinal infection, unspecified (principal); R74.8 Abnormal levels of other serum enzymes; E80.6 Other disorders of bilirubin metabolism; R16.0 Hepatomegaly, not elsewhere classified; R53.83 Other fatigue; M62.81 Muscle weakness (generalized); I10 Essential (primary) hypertension; E11.9 Type 2 diabetes mellitus without complications; F32.9 Major depressive disorder, single episode, unspecified; E03.9 Hypothyroidism, unspecified; N39.41 Urge incontinence; E66.01 Morbid (severe) obesity due to excess calories; Z68.43 Body mass index [BMI] 50.0-59.9, adult
CPT/HCPCS: 36415; 71250; 74176; 76705; 80053; 80074; 81000; 82962; 83036; 83605; 83690; 83735; 83880; 84439; 84443; 84484; 85025; 85027; 85652; 86141; 86618; 86666; 86668; 86757; 87040; 96360; G0378

== ENCOUNTER 2016-09-11 11:24 | Outpatient (CLI) | payer MEDICAID ==
[~2016-09-11 11:24] MED LIST changes: +CNC1KV INJ; +DULO60CA58; +ESTR1TAB24 PO; +FESO4TAB PO; +LEVO75TA6 PO; +MIRA50TA PO; +MONT10TA24 PO; +NALT1TAB PO; +NF-DICLOTA PO; +PANT40TA3 PO; +SITA1TBM7 PO; +SPIR100T2 PO; +TRAM-42 PO
== END 2016-09-11 11:47 | disposition home or self-care (01) ==
DX: Z01.818 Encounter for other preprocedural examination (principal); G47.10 Hypersomnia, unspecified; I10 Essential (primary) hypertension; R06.83 Snoring

== ENCOUNTER 2016-10-08 05:35 | Outpatient (CLI) | payer MEDICAID ==
[~2016-10-08] VITALS: Ht 175.3 cm; Wt 154.2 kg
== END 2016-10-08 13:36 ==
LOC: PREOP 05:35
PROVIDERS: ATTEND Surgery
DX: Z01.818 Encounter for other preprocedural examination (principal); K21.9 Gastro-esophageal reflux disease without esophagitis

== ENCOUNTER 2016-10-13 09:35 | Day surgery (SDC) | payer MEDICAID ==
[~2016-10-13] VITALS: Ht 175.3 cm; Wt 154.2 kg
--- NOTE | 2016-10-13 09:57 | Conscious Sedation/ASA ---
Conscious Sedation Pre-Proced Time Reviewed: 09:57 ASA Class: 2 Airway Mallampati Classification: ([place] appropriate class) I. II. III, IV Lungs Heart ASA score ASA 1: a normal healthy patient ASA 2: a patient with a mild systemic disease (mid diabetes, controlled hypertension, obesity ASA 3: a patient with a severe systemic disease that limits activity (angina , COPD, prior Myocardial infarction) ASA 4: a patient with an incapacitating disease that is a constant threat to life (CHF, renal failure) ASA 5: a moribund patient not expected to survive 24 hrs. (ruptured aneurysm) ASA 6: a declared brain patient whose organs are being harvested. For emergent operations, add the letter E after the classification Grade 1 Sedation Plan: Discussed options with patient/fam Note The patient is an appropriate candidate to undergo the planned procedure, sedation, and anesthesia. The patient immediately re-assessed prior to indication. NIK YATES MD Oct 13, 2016 9:57 am
--- NOTE | 2016-10-13 09:57 | History & Physicial ---
History of Present Illness History of Present Illness Reason for visit/HPI to undergo an upper endoscopy with possible balloon dilatation of a recurrent esophageal stricture. Previous dilatation in 2014 with improvement of 4 symptoms. Date of Admission Date Seen by Provider: Oct 13, 2016 Time Seen by Provider: 09:55 I consulted on this patient on 10/13/16 09:55 Attending Physician Nik Conti MD Admitting Physician Shweta Fernandez DO Consult Allergies and Home Medications Allergies Coded Allergies: sulfamethoxazole (Verified Adverse Reaction, Intermediate, RASH/ITCHING, ) trimethoprim (Verified Adverse Reaction, Intermediate, RASH/ITCHING, ) Home Medications Cholecalciferol 5,000 Unit Tablet, 5,000 UNIT PO DAILY, (Reported) Cyanocobalamin 1,000 Mcg/Ml Inj, 1,000 MCG INJ MONTHLY, (Reported) Estradiol 1 Mg Tablet, 1 MG PO DAILY, (Reported) Fesoterodine Fumarate 4 Mg Tab.sr.24h, 4 MG PO DAILY, (Reported) Levothyroxine Sodium 75 Mcg Tablet, 75 MCG PO DAILY, (Reported) Losartan/Hydrochlorothiazide 1 Each Tablet, 1 TAB PO DAILY, (Reported) Mirabegron 50 Mg Tab.er.24h, 50 MG PO DAILY, (Reported) Montelukast Sodium 10 Mg Tablet, 10 MG PO HS, (Reported) Naltrexone HCl/Bupropion HCl 1 Each Tablet.er, 2 TAB PO BID, (Reported) Pantoprazole Sodium 40 Mg Tablet.dr, 40 MG PO BID, (Reported) Past Xqibhtw-Umtjfz-Wqomwu Hx Patient Social History 2nd Hand Smoke Exposure: Yes (AT WORK) Recent Foreign Travel: No Contact w/other who traveled: No Recent Hopitalizations: No Immunizations Up To Date Tetanus Booster (TDap): Less than 5yrs Seasonal Allergies Seasonal Allergies: Yes Surgeries HX Surgeries: Yes (back sx) Surgeries: Bladder Surgery, Hysterectomy, Oophorectomy, Orthopedic, Tonsillectomy Respiratory Hx Respiratory Disorders: No (recent sleep study done-needs a cpap machine- waiting) Cardiovascular Hx Cardiovascular Disorders: Yes Cardiac Disorders: Hypertension Neurological Hx Neurological Disorders: No Reproductive System Hx Reproductive Disorders: No Female Reproductive Disorders: Endometriosis, Polycystic Ovarian Dis 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 Genitourinary Hx Genitourinary Disorders: Yes (has bladder stimulator) Genitourinary Disorders: Bladder Infection, Neurogenic Bladder Gastrointestinal Hx Gastrointestinal Disorders: Yes (dyspagea) Gastrointestinal Disorders: Gastroesophageal Reflux, Diverticulosis, Ulcer Musculoskeletal Hx Musculoskeletal Disorders: Yes (BACK SX FOR HERNIATED DISC) Musculoskeletal Disorders: Chronic Back Pain Endocrine Hx Endocrine Disorders: Yes (OBESITY) Endocrine Disorders: Hypothyroidsim, Diabetes, Non-Insulin dep HEENT HX ENT Disorders: Yes (SURGERY FOR DETATCHED RETINA) Loss of Vision: Denies Hearing Impairment: Denies Cancer Hx Cancer: No Psychosocial Hx Psychiatric Problems: Yes Behavioral Health Disorders: Depression Integumentary HX Skin/Integumentary Disorder: No Blood Transfusions Hx Blood Disorders: No Adverse Reaction to a Blood Tr: No Family Medical History Significant Family History: Other Conditions/Hx Family Hx: Not obtainable due to adoption Constitutional: no symptoms reported EENTM: no symptoms reported Respiratory: no symptoms reported Cardiovascular: no symptoms reported Gastrointestinal: dysphagia, heartburn Genitourinary: no symptoms reported Musculoskeletal: no symptoms reported Skin: no symptoms reported Physical Exam Vital Signs Capillary Refill : General Appearance: No Apparent Distress HEENT: Normal ENT Inspection Neck: Normal Inspection Respiratory: Lungs Clear Cardiovascular: Regular Rate, Rhythm Gastrointestinal: Non Tender, Soft Neurologic/Psychiatric: Alert, Oriented x3 Skin: Warm/Dry Assessment/Plan Assessment and Plan lady with recurrent dysphagia. Previous esophageal stricture. For upper endoscopy and possible balloon dilatation Problems: NIK CONTI MD Oct 13, 2016 9:57 am
[2016-10-13 09:59] VITALS: BP 113/82
[2016-10-13] MEDS ORDERED: NS IV 500 ML 500 ML IV ONE (10:00)
[2016-10-13] MEDS ORDERED: NS IV 500 ML 500 ML ONE (10:01)
[2016-10-13] MEDS ORDERED: LOSA1TAB69 PO (10:53)
[2016-10-13] MEDS ORDERED: LEVO50TA6 PO (10:53)
[2016-10-13] MEDS ORDERED: MIDAZOLAM 2 MG/2 ML (VERSED) VIAL ONE ×4 (10:54→11:15)
[2016-10-13] MEDS ORDERED: HURRICAINE EXT TUBE (BENZOCAINE) ONE (10:54)
[2016-10-13] MEDS ORDERED: fentaNYL INJECTION 100 MCG/2 ML AMP ONE (10:54)
[2016-10-13] MEDS ORDERED: LOSA50TA36 PO (10:55)
[2016-10-13] MEDS ORDERED: SPIR100T2 PO (10:55)
[2016-10-13] MEDS: MIDAZOLAM 2 MG/2 ML (VERSED) VIAL IVP PRN ×4 (11:10→11:19)
[2016-10-13] MEDS: fentaNYL INJECTION 100 MCG/2 ML AMP IVP PRN ×2 (11:11→11:15)
--- NOTE | 2016-10-13 11:32 | Endo Procedure Record ---
Endo Procedure Report Date of Procedure Oct 13, 2016 Surgeon (s) NIK YATES MD Post Procedure/Op Diagnosis 2 mm submucosal nodule at the distal esophagus. Stomach and duodenum normal Procedure Performed EGD with antral biopsy Description of Procedure Anesthesia Type: Conscious Sedation Specimen(s) collected/removed antral mucosa Description of the Procedure Indication for the procedure: This lady came in for an upper endoscopy to evaluate intermittent dysphagia and in preparation for gastric sleeve operation , to manage morbid obesity. Informed consent was obtained after reviewing the procedure in detail. Description of the procedure: She was placed in left lateral decubitus position and her vital signs were monitored. Conscious sedation was achieved using Versed and fentanyl. The flexible gastroscope was then introduced down the esophagus, past the stomach, into the proximal duodenum Findings: Esophagus: A 2 mm submucous nodule at the distal end possibly a lipoma. Photodocumentation was obtained. An endoscopic ultrasound would be arranged for further evaluation. stomach and duodenum were normal. An antral biopsy was obtained for Helicobacter status. She tolerated the procedure well and was taken back to the nursing area in a stable condition. Impression: Intermittent dysphagia. Small submucosal nodule at the distal esophagus. Helicobacter status pending. Copies To: TON BOJORQUEZ XAVIER M MD Oct 13, 2016 11:32 am
--- NOTE | 2016-10-13 11:34 | Discharge Inst-Simple/Standard ---
Discharge Inst-Standard Discharge Medications New, Converted or Re-Newed RX: Other Patient Instructions/Follow Up Plan of Care/Instructions/FU: my office staff will schedule an endoscopic ultrasound and get in touch with her Activity as Tolerated: Yes Discharge Diet: No Restrictions NIK YATES MD Oct 13, 2016 11:34 am
[2016-10-13 11:45] VITALS: BP 136/89
[2016-10-13] MEDS ORDERED: HURRICAINE EXT TUBE (BENZOCAINE) XX ONE (11:45)
[2016-10-13 12:15] VITALS: BP 141/95
[2016-10-13 12:51] VITALS: BP 141/95
== END 2016-10-13 12:50 | disposition home or self-care (01) ==
LOC: ENDO 09:35
PROVIDERS: ATTEND Surgery
DX: R13.10 Dysphagia, unspecified (principal); K22.9 Disease of esophagus, unspecified; I10 Essential (primary) hypertension; E03.9 Hypothyroidism, unspecified; E11.9 Type 2 diabetes mellitus without complications; F32.9 Major depressive disorder, single episode, unspecified

== ENCOUNTER → 2016-12-24 | Outpatient (CLI) | payer MEDICAID ==
[~2016-12-24] VITALS: Ht 175.3 cm; Wt 161.5 kg
[~2016-12-24] MED LIST changes: +CATHETER FLUSH 10 ML SYR IV PRN; +HYOS-19 SL; -HYOS0.1218 SL; +LEVO50TA6 PO; +LOSA1TAB69 PO; +LOSA50TA36 PO; +REGADENOSON 0.4 MG/5 ML SYR (LEXISCAN) IV ONE
[2016-12-24 12:52] VITALS: BP 153/82
--- NOTE | 2016-12-25 09:24 | STRESS TEST ---
DATE OF SERVICE: 12/24/2016 LEXISCAN MYOVIEW STRESS TEST REPORT REFERRING PHYSICIAN: Dr. Fernandez and Dr. Vargas in [facility]. Baseline heart rate is 85, baseline blood pressure 153/82. Baseline EKG is sinus rhythm with no ischemic changes. In summary, the patient was injected with 10.38 mCi of technetium-99 Myoview and the resting images were obtained. Then, the patient received 0.4 mg of Lexiscan followed by 29.9 mCi of technetium-99 Myoview. Throughout the test, there were no EKG changes. The resting and stressed images were reviewed and compared in the short axis, horizontal long axis, and vertical long axis views. Review of the images showed breast attenuation affecting the quality of the images. There is mild decreased uptake involving the mid to apical anterolateral wall with mild reversibility. SSS is 4, SDS is 4, TID value is significantly elevated of 1.49. On the gated images, the left ventricle appeared to be normal size with normal contractility, calculated ejection fraction 59%. CONCLUSION: 1. The patient tolerated Lexiscan well. 2. Breast attenuation affecting the quality of the images, mild decreased uptake at the mid to apical anterolateral wall with subtle reversibility, no significant ischemia was noted. 3. Transient ischemic dilatation with TID value 1.49. 4. Normal left ventricular size with normal contractility. Calculated ejection fraction 59%. Job ID: [id number] DocumentID: [id number] Dictated Date: 12/24/2016 15:36:31 Career Orientation Teacher Date: 12/25/2016 08:06:24 Dictated By: RUDDY ENRIQUEZ MD
== END ==
LOC: CARD 09:43
PROVIDERS: ATTEND Internal Medicine Cardiovascular Disease
DX: R06.09 Other forms of dyspnea; I10 Essential (primary) hypertension; R07.89 Other chest pain; E11.9 Type 2 diabetes mellitus without complications; E03.9 Hypothyroidism, unspecified
CPT/HCPCS: 78452; 93017; 93306

== ENCOUNTER 2017-01-06 13:07 | Day surgery (SDC) | payer MEDICAID ==
[2017-01-06] VITALS (10 sets, daily range): BP systolic 88–143; BP diastolic 58–94
[~2017-01-06] VITALS: Ht 175.3 cm; Wt 161.0 kg
[~2017-01-06 13:07] MED LIST changes: -CATHETER FLUSH 10 ML SYR IV PRN; -REGADENOSON 0.4 MG/5 ML SYR (LEXISCAN) IV ONE
[2017-01-06] MEDS ORDERED: HEParin (CATH LAB) 2,000 ML IV ONE (13:29)
[2017-01-06] MEDS ORDERED: NS IV 1000 ML 1,000 ML ONE (13:29)
[2017-01-06] MEDS ORDERED: NS IV 1000 ML 1,000 ML IV SCH ×2 (13:30→15:00)
[2017-01-06] MEDS ORDERED: NITROGLYCERIN DRIP 25 MG/D5W 250 ML IV ONE (13:43)
[2017-01-06] MEDS ORDERED: VERAPAMIL 5 MG/2 ML (CALAN) VIAL IV ONE (13:43)
[2017-01-06] MEDS ORDERED: fentaNYL INJECTION 100 MCG/2 ML AMP ONE ×2 (13:43→14:33)
[2017-01-06] MEDS ORDERED: MIDAZOLAM 5 MG/5 ML (VERSED) VIAL ONE (13:43)
[2017-01-06] MEDS ORDERED: HEParin 1000 UNIT/ML (10ML VIAL) FOR BOLUS ONE (13:44)
[2017-01-06 14:04] LABS: MEAN PLATELET VOLUME 10.2 FL (7.4-10.4); RED BLOOD COUNT 4.74 10^6/uL (4.35-5.85); WHITE BLOOD COUNT 9.4 10^3/uL (4.3-11.0)
--- NOTE | 2017-01-06 14:17 | Cardiac Procedure Note-CS/ASA ---
Pre-Procedure Note Pre-Op Procedure Note H&P Reviewed The H&P was reviewed, patient examined and no changes noted. Date H&P Reviewed: Jan 06, 2017 Time H&P Reviewed: 14:17 Conscious Sedation Pre-Proced Time Reviewed: 14:17 ASA Class: 3 Airway Mallampati Classification: ([place] appropriate class) I. II. III, IV Lungs Heart ASA score ASA 1: a normal healthy patient ASA 2: a patient with a mild systemic disease (mid diabetes, controlled hypertension, obesity x ASA 3: a patient with a severe systemic disease that limits activity (angina , COPD, prior Myocardial infarction) ASA 4: a patient with an incapacitating disease that is a constant threat to life (CHF, renal failure) ASA 5: a moribund patient not expected to survive 24 hrs. (ruptured aneurysm) ASA 6: a declared brain patient whose organs are being harvested. For emergent operations, add the letter E after the classification Grade 3 Sedation Plan: Analgesia, Amnesia, Plan communicated to team members, Discussed options with patient/fam, Discussed risks with patient/fam Note The patient is an appropriate candidate to undergo the planned procedure, sedation, and anesthesia. The patient immediately re-assessed prior to indication. RUDDY ENRIQUEZ MD Jan 06, 2017 14:17
[2017-01-06 14:20] LABS: PROTHROMBIN TIME PATIENT 13.3 SEC (12.2-14.7)
[2017-01-06] MEDS ORDERED: MIDAZOLAM 2 MG/2 ML (VERSED) VIAL ONE (14:33)
[2017-01-06] MEDS ORDERED: PATIENT MAY USE OWN MEDS, ALL MC SCH (14:45)
[2017-01-06] MEDS ORDERED: INFLUENZA TRIvalent 2017-2018 0.5 ML/45 MCG SYR IM ONE (15:00)
[2017-01-06] MEDS ORDERED: PATIENT MAY USE OWN MEDS, ALL PO SCH (15:00)
--- NOTE | 2017-01-06 15:04 | Cardiac Cath Report ---
Cardiac Cath Report Physician (s)/Production Line Mechanic (s) Physician RUDDY ENRIQUEZ MD Pre-Procedure Diagnosis Pre-Procedure Diagnosis: coronary artery disease, abnormal stress Post-Procedure Note Procedure Start Date: Jan 06, 2017 Procedure Start Time: 14:00 Name of Procedure: coronary angiogram Aortic arch angiogram Findings/Procedure Note PROCEDURE NOTE: After explaining the procedure to the patient, all pros and cons were explained, all questions were answered. The patient signed the consent and then she was placed on the cardiac catheterization laboratory. The patient was placed on the cardiac catheterization laboratory. Groin and wrist was prepped SL fashion local anesthesia was used. Sheath placed in the radial artery Juanita right and left catheter were used to access the coronary system. Pigtail as advanced without crossing the valve, aortic arch angiogram was then Aortic arch angiogram At the end of the procedure the sheath was removed. FINDINGS: Hemodynamics Aorta 116/90 mean of 90 ANATOMY: Left Main is free of obstructive disease Left Anterior Descending is free of obstructive disease Left Circumflex is nondominant with no obstructive disease Right Coronory Artery is dominant with mild disease Aortic arch angiogram showed normal large normal great neck vessels no dissection or aneurysm CONCLUSION: 1. Mild coronary artery disease nonobstructive disease 2. Normal aortic arch and great neck vessels DISCUSSION AND RECOMMENDATION: Medical therapy is recommended to intervention as weren't Anesthesia Type: Conscious Sedation Estimated blood loss (mL): 10 ml Contrast Amount: 50 ml Total Radiation Dose: 840 mGy Post-Procedure Diagnosis Post-operative diagnosis: Coronary artery disease Hypertension Hyperlipidemia RUDDY ENRIQUEZ MD Jan 06, 2017 15:04
--- NOTE | 2017-01-06 15:06 | Discharge Inst-Post CATH ---
Discharge Inst-CATH Post Cardiac Cath D/C Inst Follow Up/Plan Appointment with Dr Azevedo's office in 2-4 weeks CARDIAC CATH DISCHARGE INSTRUCTIONS *Hold Metformin for 48 hours post heart cath. ACTIVITY * Go Home directly and rest. * Limit activity of the leg (or wrist if it was used) for 7 days including aerobics, swimming, jogging, bicycling, etc. * Restrict stair-climbing for 7 days if possible, if not, climb up with your non -cath leg, then bring together on the same step. * Avoid lifting, pushing, pulling or excessive movement of the affected extremity for 7 days. * Customary sexual activity may be resumed after 2 days-use caution not to use a position that strains or causes pain to the affected extremity. * No driving for 24 hours. * NO SMOKING. * Avoid straining for bowel movements for 7 days. * Gentle walking on level ground is allowed. * Returning to work will depend on the type of procedure and the results. Your doctor will discuss this with you. CALL YOUR DOCTOR FOR ANY OF THE FOLLOWING: *If bleeding from the puncture site occurs- Apply gentle pressure to site with clean cloth and call your doctor or EMS. * If a knot or lump forms under the skin, increases in size, or causes pain. * If bruising appears to be worsening or moving further down your leg instead of disappearing. * Temperature above 101 F. CARE OF YOUR GROIN INCISION; * Bruising or purple discoloration of the skin near the puncture site is common. * You may shower only, no bathtub bathing for 5 days. Be careful to avoid slipping as your leg may feel stiff. * If a closure device was used on your femoral artery, please see the attached guide regarding care of the device and your leg. * REMOVE the dressing from your groin the next day after your procedure in the shower. CARE OF YOUR WRIST INCISION; * Bruising or purple discoloration of the skin near the puncture site is common. * You may shower. * DO NOT submerge wrist. * Remove dressing in 24 hours. RUDDY AZEVEDO MD Jan 06, 2017 3:06 pm
[2017-01-06 15:20] LABS: ALANINE AMINOTRANSFERASE 22 U/L (0-55); ALBUMIN 4.1 GM/DL (3.2-4.5); ANION GAP 13 MMOL/L (5-14); ASPARTATE AMINO TRANSFERASE 18 U/L (5-34); BILIRUBIN,TOTAL 0.5 MG/DL (0.1-1.0); BLOOD UREA NITROGEN 10 MG/DL (7-18); BUN/CREATININE RATIO 14; CALCIUM 10.2 MG/DL (8.5-10.1); CARBON DIOXIDE 22 MMOL/L (21-32); CHLORIDE 102 MMOL/L (98-107); CHOLESTEROL 193 MG/DL (< 200); CREATININE SERUM 0.72 MG/DL (0.60-1.30); DIRECT LDL 115 MG/DL (1-129); GFR ESTIMATED > 60; GLUCOSE 117 MG/DL (70-105); POTASSIUM 3.9 MMOL/L (3.6-5.0); SODIUM 137 MMOL/L (135-145); TOTAL PROTEIN 7.9 GM/DL (6.4-8.2); TRIGLYCERIDES 122 MG/DL (<150); VLDL CHOLESTEROL 24 MG/DL (5-40)
== END 2017-01-06 17:30 | disposition home or self-care (01) ==
LOC: INTOOBSV 13:07 → UNDOADMOB 13:07 → CATH 13:07 → ICU 13:07 → EDSTATUS 15:01 → UNDODISOB 17:30 → CATH 17:30
PROVIDERS: ATTEND Internal Medicine Cardiovascular Disease
DX: R07.89 Other chest pain (principal); I25.10 Atherosclerotic heart disease of native coronary artery without angina pectoris; E11.9 Type 2 diabetes mellitus without complications; R06.09 Other forms of dyspnea; I10 Essential (primary) hypertension; R94.39 Abnormal result of other cardiovascular function study; E03.9 Hypothyroidism, unspecified; M79.7 Fibromyalgia; E78.5 Hyperlipidemia, unspecified; Z68.43 Body mass index [BMI] 50.0-59.9, adult; Z79.899 Other long term (current) drug therapy
CPT/HCPCS: 36221; 36415; 80053; 80061; 85027; 85610; 85730; 93005; 93454

== ENCOUNTER → 2017-06-29 | Outpatient (CLI) | payer MEDICAID ==
[~2017-06-29] MED LIST changes: +DICL100T3 PO; +LOSA1TAB20 PO; -LOSA1TAB69 PO; -NF-DICLOTA PO
--- NOTE | 2017-06-30 12:19 | Diagnostic Imaging Report ---
INDICATION: Routine screening. COMPARISON: Comparison is made with prior studies from 03/19/2016 and 12/20/2014. The current study was also evaluated with a Computer Aided Detection (CAD) system. FINDINGS: Both breasts are primarily involutional. There is a small ovoid density noted in the right breast just lateral to the nipple line at anterior depth. No corresponding density on the MLO view is seen. Additional views of this area are recommended. No suspicious microcalcifications are identified. The axillae are unremarkable. IMPRESSION: Right breast density. Additional views including spot compression and rolled CC views are recommended. ACR BI-RADS Category 0: Incomplete. (Needs additional imaging evaluation). Result letter will be mailed to the patient. Note: At least 10% of breast cancer is not imaged by mammography. Dictated by: Dictated on workstation # [id number]
== END ==
LOC: RAD 14:47
PROVIDERS: ATTEND Family Medicine
DX: Z12.31 Encounter for screening mammogram for malignant neoplasm of breast (principal)
CPT/HCPCS: 77067

== ENCOUNTER 2017-07-11 11:39 | Emergency (ER) | payer MEDICAID ==
[~2017-07-11] VITALS: Ht 175.3 cm; Wt 136.1 kg
[2017-07-11 12:09] LABS: BASOPHILS % (AUTO) 0 % (0-10); EOSINOPHILS # (AUTO) 0.1 10^3/uL (0.0-0.3); EOSINOPHILS % (AUTO) 2 % (0-10); HEMATOCRIT 41 % (35-52); HEMOGLOBIN 14.2 G/DL (11.5-16.0); LYMPHOCYTES # (AUTO) 2.8 X 10^3 (1.0-4.0); LYMPHOCYTES % (AUTO) 31 % (12-44); MEAN CORPUSCULAR HEMOGLOBIN 29 PG (25-34); MEAN CORPUSCULAR HGB CONC 34 G/DL (32-36); MEAN CORPUSCULAR VOLUME 84 FL (80-99); MEAN PLATELET VOLUME 10.8 FL (7.4-10.4); MONOCYTES % (AUTO) 11 % (0-12); NEUTROPHILS # (AUTO) 5.1 X 10^3 (1.8-7.8); NEUTROPHILS % (AUTO) 56 % (42-75); PLATELET COUNT 270 10^3/uL (130-400); RED CELL DISTRIBUTION WIDTH 13.7 % (10.0-14.5); WHITE BLOOD COUNT 9.1 10^3/uL (4.3-11.0)
--- NOTE | 2017-07-11 12:17 | Diagnostic Imaging Report ---
INDICATION: Chest pain. Shortness of breath. COMPARISON: Comparison is made with prior examination from 05/15/2014. FINDINGS: The heart size, mediastinal configuration, and pulmonary vascularity are within normal limits. There is no pleural effusion, pneumothorax, or pneumonia. The osseous structures are unremarkable. IMPRESSION: No acute cardiopulmonary abnormality. Dictated by: Dictated on workstation # [id number]
[2017-07-11 12:21] LABS: INR 1.1 (0.8-1.4); PROTHROMBIN TIME PATIENT 13.8 SEC (12.2-14.7)
[2017-07-11 12:23] LABS: BILIRUBIN,URINE NEGATIVE (NEGATIVE); CLARITY,URINE SLIGHTLY CLOUDY; COLOR,URINE YELLOW; GLUCOSE, URINE (UA) NEGATIVE (NEGATIVE); KETONES,URINE NEGATIVE (NEGATIVE); LEUKOCYTE ESTERASE ,URINE NEGATIVE (NEGATIVE); NITRITE,URINE NEGATIVE (NEGATIVE); PH,URINE 7 (5-9); PROTEIN,URINE NEGATIVE (NEGATIVE); UROBILINOGEN,URINE NORMAL (NORMAL)
[2017-07-11 12:30] LABS: ALANINE AMINOTRANSFERASE 40 U/L (0-55); ALBUMIN 4.4 GM/DL (3.2-4.5); ALKALINE PHOSPHATASE 114 U/L (40-136); BUN/CREATININE RATIO 23; CALCIUM 9.9 MG/DL (8.5-10.1); CARBON DIOXIDE 24 MMOL/L (21-32); CHLORIDE 99 MMOL/L (98-107); CREATININE SERUM 0.87 MG/DL (0.60-1.30); GFR ESTIMATED > 60; GLUCOSE 97 MG/DL (70-105); MAGNESIUM 1.9 MG/DL (1.8-2.4); POTASSIUM 3.5 MMOL/L (3.6-5.0); SODIUM 135 MMOL/L (135-145); TOTAL PROTEIN 8.2 GM/DL (6.4-8.2)
[2017-07-11 12:36] LABS: BACTERIA,URINE TRACE /HPF; SQUAMOUS EPITHELIAL CELL,UR 25-50 /HPF; WBC,URINE RARE /HPF
[2017-07-11 12:37] LABS: MYOGLOBIN SERUM 40.7 NG/ML (10.0-92.0)
--- NOTE | 2017-07-11 12:38 | ED Cardiac General ---
History of Present Illness General Chief Complaint: Chest Pain Stated Complaint: CHEST PAIN Nursing Triage Note: PT CO OF CHEST PAIN, STATES HAS BEEN GOING FOR A FEW DAYS, STATES ALSO HAS R LOWER ABD PAIN AT TIMES, STATES HAS HAD FOR A FEW DAYS History of Present Illness Date Seen by Provider: Jul 11, 2017 Time Seen by Provider: 12:00 Initial Comments 47-year-old female presents with chest tightness and diffuse abdominal pain worse on the right side. She reports her symptoms of been going on for over a week, she was concerned and saw her primary care provider requesting a CT of her abdomen for diverticulitis. This has not been completed yet and the patient is concerned. She denies any nausea vomiting or diarrhea. She had bariatric surgery March 2017. She reports passing flatus and no symptoms of GERD. Timing/Duration: intermittent Severity: mild NTG SL DIRECTOR OF AGRONOMY: No ASA po DIRECTOR OF AGRONOMY: No Associated Systoms: Chest Pain; No Cough; Diaphoresis; No Loss of Appetite, No Nausea/Vomiting, No Syncope, No Weakness Allergies and Home Medications Allergies Coded Allergies: sulfamethoxazole (Verified Adverse Reaction, Intermediate, RASH/ITCHING, ) trimethoprim (Verified Adverse Reaction, Intermediate, RASH/ITCHING, ) Home Medications Cholecalciferol 5,000 Unit Tablet, 5,000 UNIT PO DAILY, (Reported) Cyanocobalamin 1,000 Mcg/Ml Inj, 1,000 MCG INJ MONTHLY, (Reported) Estradiol 1 Mg Tablet, 1 MG PO DAILY, (Reported) Fesoterodine Fumarate 4 Mg Tab.sr.24h, 4 MG PO DAILY, (Reported) Levothyroxine Sodium 50 Mcg Tablet, 50 MCG PO DAILY, (Reported) Losartan Potassium 50 Mg Tablet, 50 MG PO DAILY, (Reported) Mirabegron 50 Mg Tab.er.24h, 50 MG PO DAILY, (Reported) Montelukast Sodium 10 Mg Tablet, 10 MG PO HS, (Reported) Naltrexone HCl/Bupropion HCl 1 Each Tablet.er, 1 TAB PO BID, (Reported) Pantoprazole Sodium 40 Mg Tablet.dr, 40 MG PO BID, (Reported) Spironolactone 100 Mg Tablet, 100 MG PO DAILY, (Reported) Sucralfate 1 Gm/10 Ml Oral.susp, 1 GM PO TID Prescribed by: JITENDRA HAN on 07/11/17 1955 Patient Home Medication List Home Medication List Reviewed: Yes Review of Systems Constitutional: no symptoms reported, see HPI Cardiovascular: See HPI, Chest Pain (patient describes more as tightness bilaterally, she reports it to be similar to when she's had pneumonia in the past.) Gastrointestinal: See HPI, Abdominal Pain (generalized); Denies Constipated, Denies Diarrhea, Denies Nausea, Denies Poor Appetite, Denies Poor Fluid Intake, Denies Vomiting Genitourinary: No Symptoms Reported, See HPI All Other Systems Reviewed Negative Unless Noted: Yes Past Nckjngu-Tcmdue-Kukmsa Hx Past Med/Social Hx: Reviewed Nursing Past Med/Soc Hx Patient Social History Alcohol Use: Denies Use Recreational Drug Use: No Smoking Status: Never a Smoker 2nd Hand Smoke Exposure: Yes (AT WORK) Recent Foreign Travel: No Contact w/Someone Who Travel: No Recent Infectious Disease Expo: No Recent Hopitalizations: No Physical Abuse: No Sexual Abuse: No Immunizations Up To Date Tetanus Booster (TDap): Less than 5yrs PED Vaccines UTD: Yes Seasonal Allergies Seasonal Allergies: Yes Past Medical History Surgeries: Yes (BACK SURG, GASTRIC SLEEVE) Bladder Surgery, Hysterectomy, Oophorectomy, Orthopedic, Tonsillectomy Respiratory: No (recent sleep study done-needs a cpap machine-waiting) Cardiac: Yes Hypertension Neurological: No Reproductive Disorders: No Female Reproductive Disorders: Endometriosis, Polycystic Ovarian Dis CREELER History: Hysterectomy Genitourinary: Yes Bladder Infection, Neurogenic Bladder Gastrointestinal: Yes (dyspagea) Gastroesophageal Reflux, Diverticulosis, Ulcer Musculoskeletal: Yes (BACK SX FOR HERNIATED DISC) Chronic Back Pain Endocrine: Yes (OBESITY) Hypothyroidsim, Diabetes, Non-Insulin dep HEENT: No Loss of Vision: Denies Hearing Impairment: Denies Cancer: No Psychosocial: Yes Depression Nursing Suicide Risk Score: 0 Integumentary: No Blood Disorders: No Adverse Reaction/Blood Tranf: No Family Medical History Not obtainable due to adoption Other Conditions/Hx Physical Exam Vital Signs Vital Signs - First Documented 07/11/17 11:41 Temp 94.7 Pulse 92 Resp 18 B/P (MAP) 114/95 (101) Pulse Ox 98 Capillary Refill : Less Than 3 Seconds General Appearance: No Apparent Distress, WD/WN HEENT: PERRL/EOMI, TMs Normal, Normal ENT Inspection, Pharynx Normal Neck: Full Range of Motion, Normal Inspection, Non Tender, Supple Respiratory: Chest Non Tender, Lungs Clear, Normal Breath Sounds Cardiovascular: Regular Rate, Rhythm, No Edema, Normal Peripheral Pulses Gastrointestinal: Normal Bowel Sounds, No Organomegaly, No Pulsatile Mass, Soft ; No Distended, No Guarding; Tenderness (general lysed right upper and lower quadrant with some radiation to the flank) Neurologic/Psychiatric: Alert, Oriented x3, No Motor/Sensory Deficits, Normal Mood/Affect Skin: Normal Color, Warm/Dry Progress/Results/Core Measures Lab Results Laboratory Tests Test 07/11/17 12:00 07/11/17 12:11 Range/Units White Blood Count 9.1 4.3-11.0 10^3/uL Red Blood Count 4.90 4.35-5.85 10^6/uL Hemoglobin 14.2 11.5-16.0 G/DL Hematocrit 41 35-52 % Mean Corpuscular Volume 84 80-99 FL Mean Corpuscular Hemoglobin 29 25-34 PG Mean Corpuscular Hemoglobin Concent 34 32-36 G/DL Red Cell Distribution Width 13.7 10.0-14.5 % Platelet Count 270 130-400 10^3/uL Mean Platelet Volume 10.8 H 7.4-10.4 FL Neutrophils (%) (Auto) 56 42-75 % Lymphocytes (%) (Auto) 31 12-44 % Monocytes (%) (Auto) 11 0-12 % Eosinophils (%) (Auto) 2 0-10 % Basophils (%) (Auto) 0 0-10 % Neutrophils # (Auto) 5.1 1.8-7.8 X 10^3 Lymphocytes # (Auto) 2.8 1.0-4.0 X 10^3 Monocytes # (Auto) 1.0 0.0-1.0 X 10^3 Eosinophils # (Auto) 0.1 0.0-0.3 10^3/uL Basophils # (Auto) 0.0 0.0-0.1 10^3/uL Prothrombin Time 13.8 12.2-14.7 SEC INR Comment 1.1 0.8-1.4 Activated Partial Thromboplast Time 25 24-35 SEC Sodium Level 135 135-145 MMOL/L Potassium Level 3.5 L 3.6-5.0 MMOL/L Chloride Level 99 98-107 MMOL/L Carbon Dioxide Level 24 21-32 MMOL/L Anion Gap 12 5-14 MMOL/L Blood Urea Nitrogen 20 H 7-18 MG/DL Creatinine 0.87 0.60-1.30 MG/DL Estimat Glomerular Filtration Rate > 60 BUN/Creatinine Ratio 23 Glucose Level 97 70-105 MG/DL Calcium Level 9.9 8.5-10.1 MG/DL Magnesium Level 1.9 1.8-2.4 MG/DL Total Bilirubin 1.0 0.1-1.0 MG/DL Aspartate Amino Transf (AST/SGOT) 23 5-34 U/L Alanine Aminotransferase (ALT/SGPT) 40 0-55 U/L Alkaline Phosphatase 114 40-136 U/L Myoglobin 40.7 10.0-92.0 NG/ML Troponin I < 0.30 <0.30 NG/ML Total Protein 8.2 6.4-8.2 GM/DL Albumin 4.4 3.2-4.5 GM/DL Urine Color YELLOW Urine Clarity SLIGHTLY CLOUDY Urine pH 7 5-9 Urine Specific [place] 1.010 L 1.016-1.022 Urine Protein NEGATIVE NEGATIVE Urine Glucose (UA) NEGATIVE NEGATIVE Urine Ketones NEGATIVE NEGATIVE Urine Nitrite NEGATIVE NEGATIVE Urine Bilirubin NEGATIVE NEGATIVE Urine Urobilinogen NORMAL NORMAL MG/DL Urine Leukocyte Esterase NEGATIVE NEGATIVE Urine RBC (Auto) NEGATIVE NEGATIVE Urine RBC NONE /HPF Urine WBC RARE /HPF Urine Squamous Epithelial Cells 25-50 H /HPF Urine Crystals NONE /LPF Urine Bacteria TRACE /HPF Urine Casts NONE /LPF Urine Mucus NEGATIVE /LPF Urine Culture Indicated NO My Orders Orders - GUILLEJITENDRA CHILD'S NURSE Cbc With Automated Diff (07/11/17 11:55) Magnesium (07/11/17 11:55) Chest 1 View, Ap/Pa Only (07/11/17 11:55) Ekg Tracing (07/11/17 11:55) Cardiac Profile 1 (07/11/17 11:55) Comprehensive Metabolic Panel (07/11/17 11:55) Myoglobin Serum (07/11/17 11:55) Protime With Inr (07/11/17 11:55) Partial Thromboplastin Time (07/11/17 11:55) O2 (07/11/17 11:55) Monitor-Rhythm Ecg Trace Only (07/11/17 11:55) Saline Lock/Iv-Start (07/11/17 11:55) Ua Culture If Indicated (07/11/17 12:03) Lidocaine 2% Viscous 15 Ml (Xylocaine Vi (07/11/17 13:00) Antacid Suspension (Mylanta Suspension (07/11/17 13:00) Medications Given in ED Current Medications Medications Dose Ordered Sig/Baldemar Route Start Time Stop Time Status Last Admin Dose Admin Al Hydrox/Mg Hydrox/Simethicone 30 ml ONCE ONCE PO 07/11/17 13:00 07/11/17 13:01 DC 07/11/17 13:41 30 ML Lidocaine HCl 15 ml ONCE ONCE PO 07/11/17 13:00 07/11/17 13:01 DC 07/11/17 13:41 15 ML Vital Signs/I&O 07/11/17 07/11/17 11:41 14:13 Temp 94.7 Pulse 92 103 Resp 18 18 B/P (MAP) 114/95 (101) 111/99 (101) Pulse Ox 98 97 Blood Pressure Mean: 101 Progress Note : Time: 12:00 Progress Note Initial evaluation completed, recommended cardiac labs, UA, aspirin 324 mg chewable and continue monitoring. 1245 reviewed labs with patient, all essentially normal. Chest x-ray normal. Discussed with patient in detail that her labs and exam are not indicative for a CT of the abdomen and pelvis. 1315 patient reexamined, no tenderness to palpation in the abdomen and no CVA tenderness on the right. She is now complaining more of GERD symptoms. Will try a GI cocktail. 1345 patient reports improvement of her symptoms after taking the GI cocktail. Discharge instructions and return precautions reviewed with the patient. Initial ECG Impression Date: Jul 11, 2017 Initial ECG Impression Time: 11:46 Initial ECG Rate: 88 Initial ECG Rhythm: Normal Sinus, PVC Initial ECG Intervals: Normal Initial ECG Intervals AL 160, QRS T 94, QT 384, QTc 465. [place] P 39, QRS 8, T -62. Initial ECG Impression: Normal Initial ECG Comparisson: Unchanged Comment Reviewed EKG with Dr. Roberts, concurred with interpretation. Diagonstic Imaging: Xray Plain Films/CT/US/NM/MRI: chest Comments NAME: DORITA RAO [facility] REC#: [id number] PT STATUS: REG ER : 1970 PHYSICIAN: JITENDRA HAN ADMIT DATE: 07/11/17/ER Draft Date of Exam:07/11/17 CHEST 1 VIEW, AP/PA ONLY INDICATION: Chest pain. Shortness of breath. COMPARISON: Comparison is made with prior examination from 05/15/2014. FINDINGS: The heart size, mediastinal configuration, and pulmonary vascularity are within normal limits. There is no pleural effusion, pneumothorax, or pneumonia. The osseous structures are unremarkable. IMPRESSION: No acute cardiopulmonary abnormality. Dictated on workstation # [id number] Dict: 07/11/17 1211 Trans: 07/11/17 1217 [facility] [id number] Interpreted by: BEATRIZ PENA MD Electronically signed by: Departure Impression Primary Impression: Gastroesophageal reflux disease Qualified Codes: K21.9 - Gastro-esophageal reflux disease without esophagitis Disposition: HOME, SELF-CARE Condition: Stable Departure-Patient Inst. Decision time for Depature: 13:45 Referrals: TON BOJORQUEZ DO (PCP/Family) Primary Care Physician Patient Instructions: Acid Reflux (Gastroesophageal Reflux Disease), Adult (DC) Add. Discharge Instructions: Continue taking her Protonix which is a proton pump inhibitor, add Pepcid 10 mg twice daily, [id number], this is a histamine 2 eloise. Follow-up with your primary care provider if symptoms are not improving or worsen. Return to emergency department for new problems or concerns. All discharge instructions reviewed with patient and/or family. Voiced understanding. Scripts Sucralfate (Carafate) 1 Gm/10 Ml Oral.susp 1 GM PO TID, #210 ML 0 Refills Prov: JITENDRA HAN 07/11/17 Copy Copies To 1: TON BOJORQUEZ AMY ARNP Jul 11, 2017 12:38
[2017-07-11] MEDS ORDERED: LIDOCAINE 2% VISCOUS 15 ML UDC PO ONE (13:00)
[2017-07-11] MEDS ORDERED: ANTACID SUSP 30 ML UDC (MYLANTA) PO ONE (13:00)
[2017-07-11] MEDS ORDERED: SUCR1ORA5 PO (13:47)
[2017-07-11 14:13] VITALS: BP 111/99
== END 2017-07-11 14:13 | disposition home or self-care (01) ==
LOC: EDUNIT# 11:39 → ER 11:40
DX: K21.9 Gastro-esophageal reflux disease without esophagitis (principal); F32.9 Major depressive disorder, single episode, unspecified; E03.9 Hypothyroidism, unspecified; E66.9 Obesity, unspecified; E11.9 Type 2 diabetes mellitus without complications; Z87.19 Personal history of other diseases of the digestive system; Z90.89 Acquired absence of other organs; Z98.84 Bariatric surgery status; Z87.42 Personal history of other diseases of the female genital tract; Z90.710 Acquired absence of both cervix and uterus; Z88.2 Allergy status to sulfonamides; Z88.1 Allergy status to other antibiotic agents; Z77.22 Contact with and (suspected) exposure to environmental tobacco smoke (acute) (chronic); Z98.890 Other specified postprocedural states; Z87.440 Personal history of urinary (tract) infections; Z87.39 Personal history of other diseases of the musculoskeletal system and connective tissue; Z68.41 Body mass index [BMI] 40.0-44.9, adult
CPT/HCPCS: 36415; 71045; 80053; 81000; 83735; 83874; 84484; 85025; 85610; 85730; 93041

== ENCOUNTER → 2017-08-05 | Outpatient (CLI) | payer MEDICAID ==
--- NOTE | 2017-08-05 12:24 | Diagnostic Imaging Report ---
PROCEDURE: US Gallbladder. TECHNIQUE: Multiple Real-time grayscale images were obtained over the right upper quadrant in various projections. INDICATION: Right upper quadrant pain. FINDINGS: The pancreas is poorly visualized due to patient body habitus and bowel gas. The liver is enlarged at 21.3 cm. No discrete liver mass is detected. The gallbladder is without stones or sludge. No wall thickening or pericholecystic fluid is seen. The extrahepatic bile duct is obscured. No intrahepatic ductal dilatation is seen. The right kidney is unremarkable. There is no ascites. IMPRESSION: 1. Hepatomegaly. 2. No evidence of cholelithiasis or acute cholecystitis. Dictated by: Dictated on workstation # [id number]
== END ==
LOC: RAD 08:17
PROVIDERS: ATTEND Family Medicine
DX: R16.0 Hepatomegaly, not elsewhere classified (principal)
CPT/HCPCS: 76705

== ENCOUNTER → 2017-09-18 | Outpatient (CLI) | payer MEDICAID ==
[~2017-09-18] MED LIST changes: -SPIR100T2 PO; +SPIR100T4 PO
--- NOTE | 2017-09-18 08:03 | Diagnostic Imaging Report ---
PROCEDURE: US abdomen complete. TECHNIQUE: Multiple real-time grayscale images were obtained over the abdomen in various projections. INDICATION: Right abdominal pain Liver measures 22 cm in length without evidence of focal abnormality. Gallbladder wall thickness is 0.3 cm. There is no evidence of intraluminal filling defect or pericholecystic fluid. Large portions of the gallbladder and pancreas are obscured by overlying bowel. There is no evidence of splenic abnormality. Retroperitoneum is also obscured without evidence of aortic, inferior vena caval or renal abnormality. There is no evidence of hydronephrosis or perinephric fluid collection. No free fluid is seen in the abdomen. IMPRESSION: No acute abnormality identified, however, the amount of bowel gas does limit evaluation. Dictated by: Dictated on workstation # [id number]
== END ==
LOC: RAD 06:51
PROVIDERS: ATTEND Family Medicine
DX: R10.11 Right upper quadrant pain (principal); R10.12 Left upper quadrant pain; R10.31 Right lower quadrant pain
CPT/HCPCS: 76700

== ENCOUNTER → 2017-10-02 | Outpatient (CLI) | payer MEDICAID ==
--- NOTE | 2017-10-02 14:37 | Diagnostic Imaging Report ---
INDICATION: Abdominal pain, greatest on the right side. TIME OF EXAM: 2:46 PM FINDINGS: The bowel gas pattern is nonobstructive. No free air is seen. No pathologic calcifications are seen. There appears to be stimulator in the left pelvis. IMPRESSION: No acute features detected. Dictated by: Dictated on workstation # [id number]
== END ==
LOC: RAD 14:15
PROVIDERS: ATTEND Family Medicine
DX: K59.00 Constipation, unspecified (principal)
CPT/HCPCS: 74018

== ENCOUNTER → 2018-10-20 | Outpatient (CLI) | payer MEDICAID ==
[~2018-10-20] MED LIST changes: -DICL100T3 PO; +DICL100T83 PO; -LOSA50TA36 PO; +LOSA50TA63 PO
--- NOTE | 2018-10-20 17:45 | Diagnostic Imaging Report ---
INDICATION: Routine screening. Comparison is made with prior mammograms from 06/29/2017 and 03/19/2016. 2-D and 3-D bilateral screening mammography was performed. The current study was also evaluated with a Computer Aided Detection (CAD) system. 3-D tomosynthesis was also performed and reviewed. FINDINGS: Scattered fibroglandular densities are identified bilaterally. The parenchymal pattern is stable. No dominant mass or malignant-appearing microcalcifications are seen. The axillae are unremarkable. IMPRESSION: No mammographic features suspicious for malignancy are identified. ACR BI-RADS Category 1: Negative. Result letter will be mailed to the patient. Note: At least 10% of breast cancer is not imaged by mammography. Dictated by: Dictated on workstation # [id number]
== END ==
LOC: RAD 11:16
PROVIDERS: ATTEND Family Medicine
DX: Z12.31 Encounter for screening mammogram for malignant neoplasm of breast (principal)
CPT/HCPCS: 77067

== ENCOUNTER → 2019-10-31 | Outpatient (CLI) | payer MEDICAID ==
[~2019-10-31] MED LIST changes: -DULO60CA58; +DULO60CA59; -MONT10TA24 PO; +MONT10TA26 PO
--- NOTE | 2019-10-31 08:54 | Diagnostic Imaging Report ---
INDICATION: Routine screening. COMPARISON: 10/20/2018 and 06/29/2017. TECHNIQUE: 2D and 3D bilateral screening mammography was performed with CAD. FINDINGS: Scattered fibroglandular densities are identified bilaterally. The parenchymal pattern is stable. No mass or malignant appearing microcalcifications are seen. The axillae are unremarkable. IMPRESSION: No mammographic features suspicious for malignancy are identified. ACR BI-RADS Category 1: Negative. Result letter will be mailed to the patient. Note: At least 10% of breast cancer is not imaged by mammography. Dictated by: Dictated on workstation # [id number]
== END ==
LOC: RAD 07:15
PROVIDERS: ATTEND Nurse Practitioner Family
DX: Z12.31 Encounter for screening mammogram for malignant neoplasm of breast (principal)
CPT/HCPCS: 77063; 77067

== ENCOUNTER 2020-07-04 05:37 | Outpatient (CLI) | payer BC ==
[~2020-07-04] VITALS: Ht 175.3 cm; Wt 113.6 kg
[~2020-07-04 05:37] MED LIST changes: -MONT10TA26 PO; +MONT10TA32 PO; -PANT40TA3 PO; +PANT40TA52 PO
[2020-07-04] MEDS ORDERED: LOSA100T57 PO (10:59)
== END 2020-07-04 11:02 | disposition home or self-care (01) ==
LOC: PREOP 05:37
PROVIDERS: ATTEND Specialist
DX: Z01.818 Encounter for other preprocedural examination (principal)

== ENCOUNTER 2020-07-06 11:35 | Day surgery (SDC) | payer BC ==
[~2020-07-06] VITALS: Ht 175.2 cm; Wt 113.6 kg
[~2020-07-06 11:35] MED LIST changes: +LOSA100T57 PO
[2020-07-06] MEDS ORDERED: MOXIFLOXACIN OPHTH SOLN 5 MG/ML 0.3 ML SYRINGE OP ONE (11:45)
[2020-07-06] MEDS ORDERED: TIMOLOL MALEATE 0.5% 5 ML (TIMOPTIC) BTL OU PRN (11:45)
[2020-07-06] MEDS ORDERED: POVIDONE (BETADINE) OPHTH SOLN 5% 30 ML OP ONE (11:45)
[2020-07-06] MEDS ORDERED: LIDOCAINE PF 1% 2 ML VIAL IR PRN (11:45)
[2020-07-06] MEDS: TETRACAINE 0.5% OPHTH SOLN 4 ML BTL (SINGLE DOSE ONLY) OU PRN ×4 (11:49→12:12)
--- NOTE | 2020-07-06 11:54 | Ophthalmologist Pre-Op Note ---
Pre-Operative Progress Note H&P Reviewed The H&P was reviewed, patient examined and no changes noted. Date H&P Reviewed: Jul 06, 2020 Time H&P Reviewed: 11:54 Pre-Op Dx Cataract, Right Eye RUMA YBARRA MD Jul 06, 2020 11:54
[2020-07-06] MEDS: TROPICAMIDE 1% OPH SOLN (MYDRIACYL) 15 ML BTL OP SCH ×3 (12:02→12:12)
[2020-07-06] MEDS: PHENYLEPHRINE 10% OPHTH (NEO-SYN) 5 ML BTL OU SCH ×3 (12:02→12:12)
[2020-07-06 12:08] VITALS: BP 139/84
[2020-07-06] MEDS ORDERED: MIDAZOLAM 2 MG/2 ML (VERSED) VIAL ONE (12:10)
--- NOTE | 2020-07-06 12:34 | Ophthalmology Operative Report ---
Cataract removal/placement IOL PREOPERATIVE DIAGNOSIS: Cataract Right Eye POSTOPERATIVE DIAGNOSIS: Cataract Right Eye PROCEDURE: Cataract removal and placement of posterior chamber implant, right eye SURGEON: Abram Ybarra ANESTHESIA: Topical with sedation COMPLICATIONS: None ESTIMATED BLOOD LOSS: Minimal DESCRIPTION OF PROCEDURE: After proper informed consent was obtained, the patient, a 50 female, was taken to the Operating Room and the right eye was anesthetized with tetracaine. The right eye was then prepped and draped in the usual manner. A wire lid speculum was placed. A paracentesis was made at the left hand position. Preservative free lidocaine was injected into the anterior chamber followed by viscoelastic. A clear corneal incision was made in the temporal position. A capsulorrhexis was preformed and the central nuclear and cortical material were removed. The posterior capsule was polished and Yrn 6.0 AU00T0 IOL was placed into the capsular bag. The residual viscoelastic was aspirated and balanced saline solution was injected into the anterior chamber. Moxifloxacin was injected into the anterior chamber. The wound was checked and found to be water tight. The patient tolerated the procedure well without complications. ABRAM YBARRA MD Jul 06, 2020 12:34
--- NOTE | 2020-07-06 12:42 | Anesthesia-General Post-Op ---
MAC Patient Condition Mental Status/LOC: Same as Preop Cardiovascular: Satisfactory Nausea/Vomiting: Absent Respiratory: Satisfactory Pain: Controlled Complications: Absent Post Op Complications Complications None Follow Up Care/Instructions Patient Instructions None needed. Anesthesiology Discharge Order Discharge Order Patient is doing well, no complaints, stable vital signs, no apparent adverse anesthesia problems. No complications reported per nursing. APARNA ABDI CRNA Jul 06, 2020 12:42
[2020-07-06 12:44] VITALS: BP 121/63
[2020-07-06] MEDS ORDERED: acetaZOLAMIDE ER 500 MG CAP (DIAMOX SEQUELS) PO ONE (13:00)
== END 2020-07-06 12:46 | disposition home or self-care (01) ==
LOC: SDC 11:35
PROVIDERS: ATTEND Specialist
DX: H25.11 Age-related nuclear cataract, right eye (principal); M79.7 Fibromyalgia; Z88.2 Allergy status to sulfonamides; Z88.1 Allergy status to other antibiotic agents; Z79.899 Other long term (current) drug therapy; Z83.3 Family history of diabetes mellitus
CPT/HCPCS: 66984; V2632

== ENCOUNTER 2020-07-27 11:06 | Day surgery (SDC) | payer BC ==
[~2020-07-27] VITALS: Ht 175 cm; Wt 113.6 kg
[~2020-07-27 11:06] MED LIST changes: -DICL100T83 PO; +NF-DICLOTA PO
[2020-07-27] MEDS ORDERED: MOXIFLOXACIN OPHTH SOLN 5 MG/ML 0.3 ML SYRINGE OP ONE (11:15)
[2020-07-27] MEDS ORDERED: POVIDONE (BETADINE) OPHTH SOLN 5% 30 ML OP ONE (11:15)
[2020-07-27] MEDS ORDERED: TIMOLOL MALEATE 0.5% 5 ML (TIMOPTIC) BTL OU PRN (11:15)
[2020-07-27] MEDS ORDERED: LIDOCAINE PF 1% 2 ML VIAL IR PRN (11:15)
[2020-07-27] MEDS: TETRACAINE 0.5% OPHTH SOLN 4 ML BTL (SINGLE DOSE ONLY) OU PRN ×4 (11:22→11:42)
[2020-07-27] MEDS: TROPICAMIDE 1% OPH SOLN (MYDRIACYL) 15 ML BTL OP SCH ×3 (11:28→11:42)
[2020-07-27] MEDS: PHENYLEPHRINE 10% OPHTH (NEO-SYN) 5 ML BTL OU SCH ×3 (11:28→11:42)
[2020-07-27 11:37] VITALS: BP 131/80
[2020-07-27] MEDS ORDERED: MIDAZOLAM 2 MG/2 ML (VERSED) VIAL ONE (11:43)
--- NOTE | 2020-07-27 11:46 | Ophthalmologist Pre-Op Note ---
Pre-Operative Progress Note H&P Reviewed The H&P was reviewed, patient examined and no changes noted. Date H&P Reviewed: July 27, 2020 Time H&P Reviewed: 11:46 Pre-Op Dx Cataract, Left Eye RUMA YBARRA MD July 27, 2020 11:46
--- NOTE | 2020-07-27 12:09 | Ophthalmology Operative Report ---
Cataract removal/placement IOL PREOPERATIVE DIAGNOSIS: Cataract Left Eye POSTOPERATIVE DIAGNOSIS: Cataract Left Eye PROCEDURE: Cataract removal and placement of posterior chamber implant, left eye SURGEON: Abram Ybarra ANESTHESIA: Topical with sedation COMPLICATIONS: None ESTIMATED BLOOD LOSS: Minimal DESCRIPTION OF PROCEDURE: After proper informed consent was obtained, the patient, a 50 female, was taken to the Operating Room and the left eye was anesthetized with tetracaine. The left eye was then prepped and draped in the usual manner. A wire lid speculum was placed. A paracentesis was made at the left hand position. Preservative free lidocaine was injected into the anterior chamber followed by viscoelastic. A clear corneal incision was made in the temporal position. A capsulorrhexis was preformed and the central nuclear and cortical material were removed. The posterior capsule was polished and an Yrn 7.5 AU00T0 was placed into the capsular bag. The residual viscoelastic was aspirated and balanced saline solution was injected into the anterior chamber. Moxifloxacin was injected into the anterior chamber. The wound was checked and found to be water tight. The patient tolerated the procedure well without complications. ABRAM YBARRA MD July 27, 2020 12:09
[2020-07-27 12:15] VITALS: BP 134/85
[2020-07-27] MEDS ORDERED: acetaZOLAMIDE ER 500 MG CAP (DIAMOX SEQUELS) PO ONE (12:30)
--- NOTE | 2020-07-27 13:04 | Anesthesia-General Post-Op ---
MAC Patient Condition Mental Status/LOC: Same as Preop Cardiovascular: Satisfactory Nausea/Vomiting: Absent Respiratory: Satisfactory Pain: Controlled Complications: Absent Post Op Complications Complications None Follow Up Care/Instructions Patient Instructions None needed. Anesthesiology Discharge Order Discharge Order Patient is doing well, no complaints, stable vital signs, no apparent adverse anesthesia problems. No complications reported per nursing. KINDRA HOGAN CRNA July 27, 2020 13:04
== END 2020-07-27 12:16 | disposition home or self-care (01) ==
LOC: SDC 11:06
PROVIDERS: ATTEND Specialist
DX: H25.12 Age-related nuclear cataract, left eye (principal); I10 Essential (primary) hypertension; E66.9 Obesity, unspecified; Z68.37 Body mass index [BMI] 37.0-37.9, adult; Z79.899 Other long term (current) drug therapy; Z98.890 Other specified postprocedural states; Z88.2 Allergy status to sulfonamides; Z88.1 Allergy status to other antibiotic agents
CPT/HCPCS: 66984; V2632

== ENCOUNTER 2020-09-30 13:16 | Emergency (ER) | payer BC ==
[~2020-09-30] VITALS: Ht 175 cm; Wt 117.9 kg
[2020-09-30] MEDS ORDERED: LACTATED RINGERS 1,000 ML IV STA (14:41)
[2020-09-30] MEDS ORDERED: LACTATED RINGERS 1,000 ML IV ONE (14:42)
[2020-09-30 14:46] LABS: BASOPHILS % (AUTO) 0 % (0-10); EOSINOPHILS # (AUTO) 0.2 10^3/uL (0.0-0.3); EOSINOPHILS % (AUTO) 2 % (0-10); HEMATOCRIT 40 % (35-52); LYMPHOCYTES # (AUTO) 3.6 10^3/uL (1.0-4.0); LYMPHOCYTES % (AUTO) 39 % (12-44); MEAN CORPUSCULAR HEMOGLOBIN 31 pg (25-34); MEAN CORPUSCULAR HGB CONC 33 g/dL (32-36); MEAN CORPUSCULAR VOLUME 96 fL (80-99); MEAN PLATELET VOLUME 9.9 fL (9.0-12.2); MONOCYTES # (AUTO) 0.7 10^3/uL (0.0-1.0); MONOCYTES % (AUTO) 8 % (0-12); NEUTROPHILS # (AUTO) 4.6 10^3/uL (1.8-7.8); NEUTROPHILS % (AUTO) 51 % (42-75); PLATELET COUNT 214 10^3/uL (130-400); WHITE BLOOD COUNT 9.1 10^3/uL (4.3-11.0)
--- NOTE | 2020-09-30 14:47 | ED General ---
General Chief Complaint: Fever-Adult/Adol Stated Complaint: FEVER/WEAKNESS/SOB Source of Information: Patient Exam Limitations: No Limitations History of Present Illness Date Seen by Provider: Sep 30, 2020 Time Seen by Provider: 14:33 Initial Comments Here with report of fatigue as well as weakness and some shortness of breath. She denies actually having fever and states 98.7 was her highest temperature. States that she works at the [employer] and they are not requiring mouse there. She apparently took somebody to [facility] yesterday to get tested for COVID-19. That person was ultimately positive. She was also tested yesterday and it was negative. She has been having the symptoms for a week now. She has been vaccinated in June with the [employer] vaccine and has received both doses. States onset 1 week ago and then got a little better and then got worse again on Thursday and Thursday and today. Denies dysuria or diarrhea. Eating and drinking okay. Does have a runny nose that started this morning. The contact yesterday was in her car. She and the other person were both mask and she was in the front seat by the other person was in the backseat. Timing/Duration: 1 Week, Getting Worse Severity: Moderate Associated Systoms: Cough; No Fever/Chills, No Headaches; Loss of Appetite, Malaise; No Nausea/Vomiting, No Rash; Shortness of Air, Weakness Allergies and Home Medications Allergies Coded Allergies: sulfamethoxazole (Verified Adverse Reaction, Intermediate, RASH/ITCHING, 08/25/16) trimethoprim (Verified Adverse Reaction, Intermediate, RASH/ITCHING, 08/25/16) Home Medications Estradiol 1 Mg Tablet, 1 MG PO DAILY, (Reported) Losartan Potassium 100 Mg Tablet, 100 MG PO DAILY, (Reported) Spironolactone 100 Mg Tablet, 100 MG PO DAILY, (Reported) Patient Home Medication List Home Medication List Reviewed: Yes Review of Systems Review of Systems Constitutional: see HPI; No chills, No fever EENTM: see HPI; No throat pain Respiratory: see HPI Cardiovascular: No chest pain, No edema Gastrointestinal: No abdominal pain, No nausea, No vomiting Genitourinary: no symptoms reported All Other Systems Reviewed Negative Unless Noted: Yes Past Vivpwtr-Kgfaac-Uvdmvk Hx Patient Social History Tobacco Use?: No Substance use?: No Alcohol Use?: No Immunizations Up To Date Tetanus Booster (TDap): Less than 5yrs PED Vaccines UTD: Yes Seasonal Allergies Seasonal Allergies: Yes Past Medical History Surgeries: Yes (BACK SURG, GASTRIC SLEEVE) Bladder Surgery, Hysterectomy, Oophorectomy, Orthopedic, Tonsillectomy Respiratory: No (recent sleep study done-needs a cpap machine-waiting) Cardiac: Yes Hypertension Neurological: No Reproductive Disorders: No Female Reproductive Disorders: Endometriosis, Polycystic Ovarian Dis 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 Genitourinary: Yes Bladder Infection, Neurogenic Bladder Gastrointestinal: Yes (dyspagea) Gastroesophageal Reflux, Diverticulosis, Ulcer Musculoskeletal: Yes (BACK SX FOR HERNIATED DISC) Chronic Back Pain Endocrine: Yes (OBESITY) Hypothyroidsim, Diabetes, Non-Insulin dep HEENT: No Loss of Vision: Denies Hearing Impairment: Denies Cancer: No Psychosocial: Yes Depression Integumentary: No Blood Disorders: No Adverse Reaction/Blood Tranf: No Family Medical History Reviewed Nursing Family Hx Not obtainable due to adoption Other Conditions/Hx Physical Exam Vital Signs Vital Signs - First Documented 09/30/20 14:38 Temp 35.8 Pulse 75 Resp 20 B/P (MAP) 155/94 (114) Pulse Ox 99 Capillary Refill : Height, Weight, BMI Height: 5'9.00" Weight: 300lbs. 0.0oz. 136.084090gj; 52.4 BMI Method:Estimated General Appearance: No Apparent Distress, WD/WN, Obese HEENT: PERRL/EOMI, Pharynx Normal Neck: Non Tender, Supple Respiratory: Lungs Clear, Normal Breath Sounds Cardiovascular: Regular Rate, Rhythm, No Murmur Gastrointestinal: Non Tender, Soft Back: Normal Inspection, No CVA Tenderness, No Vertebral Tenderness Neurologic/Psychiatric: Alert, Oriented x3 Skin: Normal Color, Warm/Dry Progress/Results/Core Measures Suspected Sepsis SIRS Temperature: Pulse: Respiratory Rate: Laboratory Tests 09/30/20 14:41: White Blood Count 9.1 Blood Pressure / Mean: Laboratory Tests 09/30/20 14:41: Creatinine 0.74, Platelet Count 214, Total Bilirubin 0.2 Results/Orders Lab Results Laboratory Tests Test 09/30/20 13:35 09/30/20 14:41 09/30/20 15:07 Range/Units Influenza Type A (RT-PCR) Not Detected Not Detecte Influenza Type B (RT-PCR) Not Detected Not Detecte SARS-CoV-2 RNA (RT-PCR) Not Detected Not Detecte White Blood Count 9.1 4.3-11.0 10^3/uL Red Blood Count 4.19 3.80-5.11 10^6/uL Hemoglobin 13.0 11.5-16.0 g/dL Hematocrit 40 35-52 % Mean Corpuscular Volume 96 80-99 fL Mean Corpuscular Hemoglobin 31 25-34 pg Mean Corpuscular Hemoglobin Concent 33 32-36 g/dL Red Cell Distribution Width 12.5 10.0-14.5 % Platelet Count 214 130-400 10^3/uL Mean Platelet Volume 9.9 9.0-12.2 fL Immature Granulocyte % (Auto) 0 % Neutrophils (%) (Auto) 51 42-75 % Lymphocytes (%) (Auto) 39 12-44 % Monocytes (%) (Auto) 8 0-12 % Eosinophils (%) (Auto) 2 0-10 % Basophils (%) (Auto) 0 0-10 % Neutrophils # (Auto) 4.6 1.8-7.8 10^3/uL Lymphocytes # (Auto) 3.6 1.0-4.0 10^3/uL Monocytes # (Auto) 0.7 0.0-1.0 10^3/uL Eosinophils # (Auto) 0.2 0.0-0.3 10^3/uL Basophils # (Auto) 0.0 0.0-0.1 10^3/uL Immature Granulocyte # (Auto) 0.0 0.0-0.1 10^3/uL D-Dimer 0.27 0.00-0.49 UG/ML Sodium Level 140 135-145 MMOL/L Potassium Level 4.0 3.6-5.0 MMOL/L Chloride Level 108 H 98-107 MMOL/L Carbon Dioxide Level 23 21-32 MMOL/L Anion Gap 9 5-14 MMOL/L Blood Urea Nitrogen 14 7-18 MG/DL Creatinine 0.74 0.60-1.30 MG/DL Estimat Glomerular Filtration Rate > 60 BUN/Creatinine Ratio 19 Glucose Level 100 70-105 MG/DL Calcium Level 8.9 8.5-10.1 MG/DL Corrected Calcium 9.0 8.5-10.1 MG/DL Total Bilirubin 0.2 0.1-1.0 MG/DL Aspartate Amino Transf (AST/SGOT) 15 5-34 U/L Alanine Aminotransferase (ALT/SGPT) 13 0-55 U/L Alkaline Phosphatase 63 40-136 U/L C-Reactive Protein High Sensitivity 0.08 0.00-0.50 MG/DL B-Type Natriuretic Peptide 81.4 <100.0 PG/ML Total Protein 7.2 6.4-8.2 GM/DL Albumin 3.9 3.2-4.5 GM/DL Procalcitonin 0.01 <0.10 NG/ML TSH [place] Testing 0.65 0.35-4.94 UIU/ML Urine Color YELLOW Urine Clarity CLEAR Urine pH 6.0 5-9 Urine Specific [place] 1.025 H 1.016-1.022 Urine Protein NEGATIVE NEGATIVE Urine Glucose (UA) NEGATIVE NEGATIVE Urine Ketones NEGATIVE NEGATIVE Urine Nitrite NEGATIVE NEGATIVE Urine Bilirubin NEGATIVE NEGATIVE Urine Urobilinogen 1.0 < = 1.0 MG/DL Urine Leukocyte Esterase NEGATIVE NEGATIVE Urine RBC (Auto) TRACE-I NEGATIVE Urine RBC RARE /HPF Urine WBC 0-2 /HPF Urine Squamous Epithelial Cells 0-2 /HPF Urine Crystals NONE /LPF Urine Bacteria NEGATIVE /HPF Urine Casts NONE /LPF Urine Mucus NEGATIVE /LPF Urine Culture Indicated NO My Orders Orders - CARLA LAMBERT MD Covid 19 Inhouse Test (09/30/20 13:29) Influenza A And B By Pcr (09/30/20 13:29) Ua Culture If Indicated (09/30/20 14:41) Lactated Ringers (Lr 1000 Ml Iv Solution (09/30/20 14:41) Lactated Ringers (Lr 1000 Ml Iv Solution (09/30/20 14:42) Thyroid Analyzer (09/30/20 16:22) Vital Signs/I&O 09/30/20 14:38 Temp 35.8 Pulse 75 Resp 20 B/P (MAP) 155/94 (114) Pulse Ox 99 Capillary Refill : Progress Note : Progress Note Seen and evaluated. IV, labs, UA, chest x-ray, COVID-19 testing and influenza testing ordered. LR 1 L bolus due to history of hypokalemia. Monitor patient. 1625: No acute findings on any of the testing. In further discussion we will go ahead and add thyroid studies now. She is eating and drinking well in the room. We will see with the results of that are. Monitor patient. 1719: Thyroid studies are normal. Overall she is doing a little better with fluids. This may be nonspecific viral syndrome. No indication for admission. I will send a copy of the chart to Dr. Fernandez. She will follow up with her later this week. Discharged home with return precautions. Patient verbalized understanding of instructions and agreement with plan. Diagnostic Imaging Diagonstic Imaging: Xray Plain Films/CT/US/NM/MRI: chest Comments NAME: DORITA RAO [facility] REC#: [id number] PT STATUS: REG ER : 1970 PHYSICIAN: ALFREDO VERDE APRN ADMIT DATE: 09/30/20/ER Draft Date of Exam:09/30/20 CHEST 1 VIEW, AP/PA ONLY INDICATION: cough. TECHNIQUE: Single view chest 2:47 PM. CORRELATION STUDY: 07/11/2017 FINDINGS: The heart size, mediastinal configuration and pulmonary vascularity are within normal limits. The lungs are clear with no consolidating infiltrate. There is no significant effusion or pneumothorax. IMPRESSION: 1. Negative portable chest. Dictated on workstation # [id number] Dict: 09/30/20 1445 Trans: 09/30/20 1445 DO [id number] Interpreted by: QUINN PLEITEZ DO Electronically signed by: Departure Impression Primary Impression: Fatigue Qualified Codes: R53.83 - Other fatigue Disposition: 01 HOME, SELF-CARE Condition: Stable Departure-Patient Inst. Decision time for Depature: 17:19 Referrals: TON FERNANDEZ DO (PCP/Family) Primary Care Physician Patient Instructions: Fatigue (DC) Add. Discharge Instructions: All discharge instructions reviewed with patient and/or family. Voiced unde rstanding. Continue home medications as directed. Get plenty of rest. Drink plenty of fluids and eat a normal diet. Follow-up with your doctor later this week for recheck and further evaluation. Return for worsening symptoms, fever, vomiting, weakness, breathing problems, loss of taste or smell or other concerns as needed. Work/School Note: Work Release Form Date Seen in the Emergency Department: Sep 30, 2020 Return to Work: Oct 03, 2020 Restrictions: No Restrictions Copy Copies To 1: TON FERNANDEZ TIMOTHY D MD Sep 30, 2020 14:47
[2020-09-30 15:04] LABS: ALANINE AMINOTRANSFERASE 13 U/L (0-55); ALBUMIN 3.9 GM/DL (3.2-4.5); ALKALINE PHOSPHATASE 63 U/L (40-136); BILIRUBIN,TOTAL 0.2 MG/DL (0.1-1.0); BUN/CREATININE RATIO 19; CALCIUM 8.9 MG/DL (8.5-10.1); CARBON DIOXIDE 23 MMOL/L (21-32); CHLORIDE 108 MMOL/L (98-107); CREATININE SERUM 0.74 MG/DL (0.60-1.30); GFR ESTIMATED > 60; GLUCOSE 100 MG/DL (70-105); SODIUM 140 MMOL/L (135-145); TOTAL PROTEIN 7.2 GM/DL (6.4-8.2)
[2020-09-30 15:15] LABS: BILIRUBIN,URINE NEGATIVE (NEGATIVE); CLARITY,URINE CLEAR; COLOR,URINE YELLOW; GLUCOSE, URINE (UA) NEGATIVE (NEGATIVE); KETONES,URINE NEGATIVE (NEGATIVE); LEUKOCYTE ESTERASE ,URINE NEGATIVE (NEGATIVE); NITRITE,URINE NEGATIVE (NEGATIVE); PROTEIN,URINE NEGATIVE (NEGATIVE)
[2020-09-30 15:46] LABS: RBC,URINE RARE /HPF; WBC,URINE 0-2 /HPF
[2020-09-30 15:47] LABS: BACTERIA,URINE NEGATIVE /HPF; SQUAMOUS EPITHELIAL CELL,UR 0-2 /HPF
[2020-09-30 17:27] VITALS: BP 154/74
== END 2020-09-30 17:27 | disposition home or self-care (01) ==
LOC: EDUNIT# 13:16 → ER 13:18
DX: R53.83 Other fatigue (principal); E66.9 Obesity, unspecified; I10 Essential (primary) hypertension; E11.9 Type 2 diabetes mellitus without complications; Z20.822 Contact with and (suspected) exposure to COVID-19; Z68.43 Body mass index [BMI] 50.0-59.9, adult; Z79.899 Other long term (current) drug therapy
CPT/HCPCS: 36415; 71045; 80053; 81000; 83880; 84145; 84443; 85025; 85379; 86141; 87636

== ENCOUNTER → 2021-03-04 | Outpatient (CLI) | payer BC ==
[~2021-03-04] MED LIST changes: +MONT-40 PO; -MONT10TA32 PO; -PHEN37.53 PO; +PHEN37.58 PO
--- NOTE | 2021-03-04 15:44 | Diagnostic Imaging Report ---
INDICATION: Covid neg, dyspnea. COMPARISON: 09/30/2020. FINDINGS: Frontal and lateral views of the chest demonstrate normal heart size and pulmonary vascularity. The lungs are clear. There are no signs of infiltrate, pleural effusions or pneumothoraces. The visualized osseous structures show no acute abnormalities. IMPRESSION: No acute process. No signs of infiltrates, effusions, or pneumothoraces. Dictated by: Dictated on workstation # [id number]
== END ==
LOC: RAD 14:39
PROVIDERS: ATTEND Family Medicine
DX: R06.00 Dyspnea, unspecified (principal); Z20.822 Contact with and (suspected) exposure to COVID-19
CPT/HCPCS: 71046

== ENCOUNTER 2021-03-10 17:13 | Emergency (ER) | payer BC ==
[~2021-03-10] VITALS: Ht 175 cm; Wt 113.0 kg
[2021-03-10] MEDS ORDERED: ASPIRIN 81 MG CHEW (CHILDREN'S ASA) PO ONE (17:30)
[2021-03-10 17:31] LABS: BILIRUBIN,URINE NEGATIVE (NEGATIVE); CLARITY,URINE CLEAR; COLOR,URINE YELLOW; GLUCOSE, URINE (UA) NEGATIVE (NEGATIVE); KETONES,URINE NEGATIVE (NEGATIVE); LEUKOCYTE ESTERASE ,URINE NEGATIVE (NEGATIVE); NITRITE,URINE NEGATIVE (NEGATIVE); PH,URINE 6.5 (5-9); PROTEIN,URINE NEGATIVE (NEGATIVE)
[2021-03-10 17:45] LABS: BACTERIA,URINE NEGATIVE /HPF; SQUAMOUS EPITHELIAL CELL,UR 0-2 /HPF
[2021-03-10 17:48] LABS: BASOPHILS # (AUTO) 0.1 10^3/uL (0.0-0.1); BASOPHILS % (AUTO) 1 % (0-10); EOSINOPHILS # (AUTO) 0.3 10^3/uL (0.0-0.3); EOSINOPHILS % (AUTO) 3 % (0-10); HEMATOCRIT 41 % (35-52); HEMOGLOBIN 13.3 g/dL (11.5-16.0); LYMPHOCYTES % (AUTO) 40 % (12-44); MEAN CORPUSCULAR HEMOGLOBIN 30 pg (25-34); MEAN CORPUSCULAR HGB CONC 33 g/dL (32-36); MEAN CORPUSCULAR VOLUME 92 fL (80-99); MEAN PLATELET VOLUME 10.6 fL (9.0-12.2); MONOCYTES # (AUTO) 0.9 10^3/uL (0.0-1.0); MONOCYTES % (AUTO) 9 % (0-12); NEUTROPHILS # (AUTO) 4.7 10^3/uL (1.8-7.8); NEUTROPHILS % (AUTO) 47 % (42-75); PLATELET COUNT 251 10^3/uL (130-400); WHITE BLOOD COUNT 9.9 10^3/uL (4.3-11.0)
--- NOTE | 2021-03-10 17:54 | ED Cardiac General ---
History of Present Illness General Chief Complaint: Chest Pain Stated Complaint: SOB/HEART FLUTTERING/CHEST PRESSURE History of Present Illness Date Seen by Provider: Mar 10, 2021 Time Seen by Provider: 17:10 Initial Comments 50-year-old female reports having symptoms of shortness of air, weakness, malaise and occasional cough since 03/02/2021. She received her COVID vaccines in June 2020. She was tested for Covid and strep on 03/04/2021 and was found to be negative. She was started on an albuterol inhaler, her last use was yesterday. She wears CPAP and has been unable to because of shortness of air at night. She has no history of DVTs or PEs. She is not on anticoagulants or aspirin. She had a stress test in 2016 prior to bariatric surgery which was negative. She does not see cardiology. Reports intermittent palpitations and flutter in chest. She denies chest pain. She monitors her SaO2 regularly and it si 95-100%, her pulse has been 70-105. No family members have similar symptoms. Patient anxious about symptoms, enquiring about having CT of heart and stress test in ED. She has an elderly friend staying with her, who is a retired nurse providing her possibilities of her symptoms and she has been looking her symptoms up on [employer]. Timing/Duration: 6-7 days Severity: mild Prior CP/Workup: no prior chest pain NTG SL TOWER FOREMAN: No ASA po TOWER FOREMAN: No Associated Systoms: No Chest Pain, No Cough, No Diaphoresis, No Fever/Chills, No Headaches, No Loss of Appetite; Malaise; No Nausea/Vomiting, No Rash, No Seizure; Shortness of Air; No Syncope; Weakness Allergies and Home Medications Allergies Coded Allergies: sulfamethoxazole (Verified Adverse Reaction, Intermediate, RASH/ITCHING, 08/25/16) trimethoprim (Verified Adverse Reaction, Intermediate, RASH/ITCHING, 08/25/16) Patient Home Medication List Home Medication List Reviewed: Yes Estradiol (Estradiol Tablet) 1 Mg Tablet, 1 MG PO DAILY, (Reported) Entered as Reported by: JAYLENE COLLAZO on 08/22/162107 Losartan Potassium (Losartan Potassium) 100 Mg Tablet, 100 MG PO DAILY, (Reported) Entered as Reported by: ANGEL LOWERY on 07/04/20 1059 Spironolactone (Spironolactone) 100 Mg Tablet, 100 MG PO DAILY, (Reported) Entered as Reported by: ANGEL LOWERY on 10/13/16 1055 Review of Systems Review of Systems Constitutional: see HPI; No dizziness, No fever; malaise, weakness EENTM: No Symptoms Reported, See HPI Respiratory: See HPI, Cough, Shortness of Air, SOA With Exertion; Denies Wheezing Cardiovascular: See HPI; Denies Chest Pain; Palpitations Gastrointestinal: No Symptoms Reported, See HPI Genitourinary: No Symptoms Reported, See HPI Musculoskeletal: no symptoms reported, see HPI Skin: no symptoms reported, see HPI Psychiatric/Neurological: No Symptoms Reported, See HPI All Other Systems Reviewed Negative Unless Noted: Yes Past Ntxqeyi-Mfslch-Jicfpi Hx Immunizations Up To Date Tetanus Booster (TDap): Less than 5yrs PED Vaccines UTD: Yes Seasonal Allergies Seasonal Allergies: Yes Past Medical History Surgeries: Yes (BACK SURG, GASTRIC SLEEVE) Bladder Surgery, Hysterectomy, Oophorectomy, Orthopedic, Tonsillectomy Respiratory: No (recent sleep study done-needs a cpap machine-waiting) Cardiac: Yes Hypertension Neurological: No Reproductive Disorders: No Female Reproductive Disorders: Endometriosis, Polycystic Ovarian Dis 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 Genitourinary: Yes Bladder Infection, Neurogenic Bladder Gastrointestinal: Yes (dyspagea) Gastroesophageal Reflux, Diverticulosis, Ulcer Musculoskeletal: Yes (BACK SX FOR HERNIATED DISC) Chronic Back Pain Endocrine: Yes (OBESITY) Hypothyroidsim, Diabetes, Non-Insulin dep HEENT: No Loss of Vision: Denies Hearing Impairment: Denies Cancer: No Psychosocial: Yes Depression Integumentary: No Blood Disorders: No Adverse Reaction/Blood Tranf: No Family Medical History Reviewed Nursing Family Hx Not obtainable due to adoption Other Conditions/Hx Physical Exam Vital Signs Vital Signs - First Documented 03/10/21 03/10/21 17:20 19:00 Temp 36.8 Pulse 82 Resp 20 B/P (MAP) 157/94 (115) Pulse Ox 100 O2 Delivery Room Air Capillary Refill : Height, Weight, BMI Height: 5'9.00" Weight: 300lbs. 0.0oz. 136.289344qd; 38.00 BMI Method:Estimated General Appearance: WD/WN, Anxious HEENT: PERRL/EOMI, TMs Normal, Normal ENT Inspection, Pharynx Normal Neck: Full Range of Motion, Normal Inspection, Non Tender, Supple Respiratory: Chest Non Tender, Lungs Clear, Normal Breath Sounds, No Accessory Muscle Use, No Respiratory Distress Cardiovascular: Regular Rate, Rhythm, No Edema, No Murmur, Normal Peripheral Pulses Gastrointestinal: Normal Bowel Sounds, Non Tender, Soft Extremity: Normal Capillary Refill, Normal Inspection, Normal Range of Motion, Non Tender, No Calf Tenderness, No Pedal Edema; No Calf Tenderness Neurologic/Psychiatric: Alert, Oriented x3, No Motor/Sensory Deficits, Normal Mood/Affect Skin: Normal Color, Warm/Dry Progress/Results/Core Measures Results/Orders Lab Results Laboratory Tests Test 03/10/21 17:22 03/10/21 17:37 03/10/21 18:02 Range/Units Urine Color YELLOW Urine Clarity CLEAR Urine pH 6.5 5-9 Urine Specific [place] <=1.005 1.016-1.022 Urine Protein NEGATIVE NEGATIVE Urine Glucose (UA) NEGATIVE NEGATIVE Urine Ketones NEGATIVE NEGATIVE Urine Nitrite NEGATIVE NEGATIVE Urine Bilirubin NEGATIVE NEGATIVE Urine Urobilinogen 0.2 < = 1.0 MG/DL Urine Leukocyte Esterase NEGATIVE NEGATIVE Urine RBC (Auto) NEGATIVE NEGATIVE Urine RBC NONE /HPF Urine WBC NONE /HPF Urine Squamous Epithelial Cells 0-2 /HPF Urine Renal Epithelial Cells NONE /HPF Urine Crystals NONE /LPF Urine Bacteria NEGATIVE /HPF Urine Casts NONE /LPF Urine Mucus NEGATIVE /LPF Urine Culture Indicated NO White Blood Count 9.9 4.3-11.0 10^3/uL Red Blood Count 4.45 3.80-5.11 10^6/uL Hemoglobin 13.3 11.5-16.0 g/dL Hematocrit 41 35-52 % Mean Corpuscular Volume 92 80-99 fL Mean Corpuscular Hemoglobin 30 25-34 pg Mean Corpuscular Hemoglobin Concent 33 32-36 g/dL Red Cell Distribution Width 13.7 10.0-14.5 % Platelet Count 251 130-400 10^3/uL Mean Platelet Volume 10.6 9.0-12.2 fL Immature Granulocyte % (Auto) 0 % Neutrophils (%) (Auto) 47 42-75 % Lymphocytes (%) (Auto) 40 12-44 % Monocytes (%) (Auto) 9 0-12 % Eosinophils (%) (Auto) 3 0-10 % Basophils (%) (Auto) 1 0-10 % Neutrophils # (Auto) 4.7 1.8-7.8 10^3/uL Lymphocytes # (Auto) 4.0 1.0-4.0 10^3/uL Monocytes # (Auto) 0.9 0.0-1.0 10^3/uL Eosinophils # (Auto) 0.3 0.0-0.3 10^3/uL Basophils # (Auto) 0.1 0.0-0.1 10^3/uL Immature Granulocyte # (Auto) 0.0 0.0-0.1 10^3/uL Prothrombin Time 12.8 12.2-14.7 SEC INR Comment 0.9 0.8-1.4 Activated Partial Thromboplast Time 24 24-35 SEC D-Dimer 0.19 0.00-0.49 UG/ML Sodium Level 139 135-145 MMOL/L Potassium Level 4.2 3.6-5.0 MMOL/L Chloride Level 103 98-107 MMOL/L Carbon Dioxide Level 22 21-32 MMOL/L Anion Gap 14 5-14 MMOL/L Blood Urea Nitrogen 12 7-18 MG/DL Creatinine 0.77 0.60-1.30 MG/DL Estimat Glomerular Filtration Rate 79 BUN/Creatinine Ratio 16 Glucose Level 74 70-105 MG/DL Calcium Level 9.1 8.5-10.1 MG/DL Corrected Calcium 9.0 8.5-10.1 MG/DL Magnesium Level 2.1 1.6-2.4 MG/DL Total Bilirubin 0.3 0.1-1.0 MG/DL Aspartate Amino Transf (AST/SGOT) 31 5-34 U/L Alanine Aminotransferase (ALT/SGPT) 14 0-55 U/L Alkaline Phosphatase 70 40-136 U/L Lactate Dehydrogenase 266 H 125-220 U/L Myoglobin 39.9 10.0-92.0 NG/ML Troponin I < 0.028 <0.028 NG/ML C-Reactive Protein High Sensitivity 0.05 0.00-0.50 MG/DL Total Protein 8.1 6.4-8.2 GM/DL Albumin 4.1 3.2-4.5 GM/DL Procalcitonin 0.00 <0.10 NG/ML TSH [place] Testing 1.52 0.35-4.94 UIU/ML Influenza Type A (RT-PCR) Not Detected Not Detecte Influenza Type B (RT-PCR) Not Detected Not Detecte SARS-CoV-2 RNA (RT-PCR) Not Detected Not Detecte My Orders Orders - JITENDRA HAN Cbc With Automated Diff (03/10/21 17:19) Magnesium (03/10/21 17:19) Chest 1 View, Ap/Pa Only (03/10/21 17:19) Ekg Tracing (03/10/21 17:19) Comprehensive Metabolic Panel (03/10/21 17:19) Myoglobin Serum (03/10/21 17:19) Protime With Inr (03/10/21 17:19) Partial Thromboplastin Time (03/10/21 17:19) O2 (03/10/21 17:19) Monitor-Rhythm Ecg Trace Only (03/10/21 17:19) Ed Iv/Invasive Line Start (03/10/21 17:19) Fibrin Degradation Products (03/10/21 17:19) Troponin I [place] (03/10/21 17:19) Aspirin Chewable Tablet (Baby Aspirin Ch (03/10/21 17:30) Ua Culture If Indicated (03/10/21 17:20) Hs C Reactive Protein (03/10/21 17:20) Procalcitonin (Pct) (03/10/21 17:20) LDH (03/10/21 17:20) Influenza A And B By Pcr (03/10/21 17:38) Covid 19 Inhouse Test (03/10/21 17:38) Thyroid Analyzer (03/10/21 18:02) Lidocaine 2% Viscous 15 Ml (Xylocaine Vi (03/10/21 19:00) Antacid Suspension ([place]ylanta Suspension (03/10/21 19:00) Medications Given in ED Current Medications Medications Dose Ordered Sig/Baldemar Route Start Time Stop Time Status Last Admin Dose Admin Al Hydrox/Mg Hydrox/Simethicone 30 ml ONCE ONCE PO 03/10/21 19:00 03/10/21 19:01 DC 03/10/21 18:54 30 ML Aspirin 324 mg ONCE ONCE PO 03/10/21 17:30 03/10/21 17:31 DC 03/10/21 18:01 324 MG Lidocaine HCl 15 ml ONCE ONCE PO 03/10/21 19:00 03/10/21 19:01 DC 03/10/21 18:54 15 ML Vital Signs/I&O 03/10/21 03/10/21 17:20 19:00 Temp 36.8 36.8 Pulse 82 66 Resp 20 20 B/P (MAP) 157/94 (115) 131/81 Pulse Ox 100 100 O2 Delivery Room Air Progress Progress Note : Time: 17:10 Progress Note Patient seen and evaluated, will obtain labs, Covid and influenza testing, EKG and chest x-ray. Aspirin 324 mg orally. 1800 patient has continued in sinus rhythm 70s to 80s, she denies any palpitations. 1844 Covid and influenza negative. All lab results negative, D-dimer normal so no indication for CT angio. Patient reports a history of GERD in the past that has improved with a GI cocktail, will try this. 1899 patient reports improvement in symptoms after GI cocktail. Discharge instructions and return precautions reviewed with the patient. Stressed the importance of following up with primary care. Initial ECG Impression Date: Mar 10, 2021 Initial ECG Impression Time: 17:19 Initial ECG Rate: 84 Initial ECG Rhythm: Normal Sinus Initial ECG Intervals: Normal Initial ECG Intervals MT 172; QRSD 94; QT 400; QTc 473. [place] P 41; QRS 12; T 8 Initial ECG Impression: Normal Initial ECG Comparisson: Unchanged Diagnostic Imaging Diagonstic Imaging: Xray Plain Films/CT/US/NM/MRI: chest Comments NAME: DORITA RAO [facility] REC#: [id number] PT STATUS: REG ER : 1970 PHYSICIAN: JITENDRA HAN ADMIT DATE: 03/10/21/ER Draft Date of Exam:03/10/21 CHEST 1 VIEW, AP/PA ONLY INDICATION: Chest pain. Comparison made with prior examination of 09/30/2020. FINDINGS: The heart size, mediastinal configuration, and pulmonary vascularity are within normal limits. There is no pleural effusion, pneumothorax, or pneumonia. The osseous structures are unremarkable. IMPRESSION: No acute cardiopulmonary abnormality. Dictated on workstation # [id number] Dict: 03/10/21 1759 Trans: 03/10/21 1104 CVB [id number] Interpreted by: BEATRIZ PENA Reviewed: Reviewed by Me Departure Impression Primary Impression: URI (upper respiratory infection) Qualified Codes: J06.9 - Acute upper respiratory infection, unspecified Additional Impression: Palpitations Disposition: 01 HOME, SELF-CARE Condition: Improved Departure-Patient Inst. Decision time for Depature: 18:45 Referrals: TON BOJORQUEZ DO (PCP/Family) Primary Care Physician Patient Instructions: Viral Upper Respiratory Infection, Adult (DC), Palpitations (DC) Add. Discharge Instructions: Follow-up with your primary care provider if symptoms are not improving or worsen. Consider referral to cardiology for palpitations. Continue your home medications as prescribed. [place] diet, avoid fried, greasy, or spicy foods. Increase water intake, 16 oz every 2 hours, while awake. Take aspirin 81 mg daily. Use your inhaler, every 4-6 hours for shortness of air. Return to Emergency Dept for new, urgent healthcare needs. All discharge instructions reviewed with patient and/or family. Voiced understanding. Copy Copies To 1: TON BOJORQUEZEJITENDRA Mar 10, 2021 17:53
[2021-03-10 17:58] LABS: ALBUMIN 4.1 GM/DL (3.2-4.5)
[2021-03-10 18:00] LABS: CALCIUM 9.1 MG/DL (8.5-10.1)
[2021-03-10 18:01] LABS: TOTAL PROTEIN 8.1 GM/DL (6.4-8.2)
[2021-03-10 18:03] LABS: BILIRUBIN,TOTAL 0.3 MG/DL (0.1-1.0); INR 0.9 (0.8-1.4); PROTHROMBIN TIME PATIENT 12.8 SEC (12.2-14.7)
[2021-03-10 18:04] LABS: CREATININE SERUM 0.77 MG/DL (0.60-1.30)
--- NOTE | 2021-03-10 18:04 | Diagnostic Imaging Report ---
INDICATION: Chest pain. Comparison made with prior examination of 09/30/2020. FINDINGS: The heart size, mediastinal configuration, and pulmonary vascularity are within normal limits. There is no pleural effusion, pneumothorax, or pneumonia. The osseous structures are unremarkable. IMPRESSION: No acute cardiopulmonary abnormality. Dictated by: Dictated on workstation # [id number]
[2021-03-10 18:07] LABS: MAGNESIUM 2.1 MG/DL (1.6-2.4)
[2021-03-10 18:14] LABS: POTASSIUM 4.2 MMOL/L (3.6-5.0)
[2021-03-10 18:39] LABS: TSH (THYROID ANALYZER) 1.52 UIU/ML (0.35-4.94)
[2021-03-10 19:00] VITALS: BP 131/81
[2021-03-10] MEDS ORDERED: ANTACID SUSP 30 ML UDC (MYLANTA) PO ONE (19:00)
[2021-03-10] MEDS ORDERED: LIDOCAINE 2% VISCOUS 15 ML UDC PO ONE (19:00)
== END 2021-03-10 19:02 | disposition home or self-care (01) ==
LOC: EDUNIT# 17:13 → ER 17:15
DX: J06.9 Acute upper respiratory infection, unspecified (principal); R00.2 Palpitations; I10 Essential (primary) hypertension; E11.9 Type 2 diabetes mellitus without complications; E66.9 Obesity, unspecified; Z20.822 Contact with and (suspected) exposure to COVID-19; Z68.38 Body mass index [BMI] 38.0-38.9, adult
CPT/HCPCS: 36415; 71045; 80053; 81000; 83615; 83735; 83874; 84145; 84443; 84484; 85025; 85379; 85610; 85730; 86141; 87636; 93005; 93041

== ENCOUNTER → 2021-04-19 | Outpatient (CLI) | payer BC | LOC: CARD 10:00 | PROVIDERS: ATTEND Internal Medicine Cardiovascular Disease | DX: I49.9 Cardiac arrhythmia, unspecified (principal); I11.9 Hypertensive heart disease without heart failure | CPT/HCPCS: 93225; 93226; 93306 ==

== ENCOUNTER → 2021-05-17 | Outpatient (CLI) | payer BC ==
[~2021-05-17] MED LIST changes: +CATHETER FLUSH 10 ML SYR IV PRN; +HOLD METFORMIN - RECEIVED CONTRAST 20 ML VIAL IV SCH; +IOHEXOL 350 MG/ML 100 ML (OMNIPAQUE 350) VIAL IV ONE; +NS 100 ML (IVPB) BAG IV ONE
[2021-05-17 08:58] LABS: CREATININE SERUM 0.74 MG/DL (0.60-1.30)
--- NOTE | 2021-05-17 09:56 | Diagnostic Imaging Report ---
PROCEDURE: CT angiography of the chest with contrast. TECHNIQUE: Multiple contiguous axial images were obtained through the chest after uneventful bolus administration of intravenous contrast. 3D reconstructed CTA MIP acquisitions were also performed. Auto Exposure Controls were utilized during the CT exam to meet ALARA standards for radiation dose reduction. INDICATION: Unruptured thoracic aortic aneurysm for follow-up. COMPARISON with chest CT date 08/22/2016. The aortic root at the level of the sinus of Valsalva 3.4 cm within normal limits. Root at the sinotubular junction is 3.3 cm within normal limits. The ascending aorta ectatic at 3.9 cm. No mural hemorrhage, dissection or rupture of the arch and great vessels unremarkable, the descending thoracic aorta normal in caliber, the vessel showing normal distal tapering. There is no pulmonary arterial embolus or filling defect. The lungs are clear. No failure, effusion or pneumothorax. No acute soft tissue or osseous chest wall pathology. The visualized upper abdomen shows normal caliber patent upper abdominal aorta and the takeoff of the celiac and superior mesenteric arteries normal. There are postoperative changes to the stomach. The adrenals are negative. IMPRESSION: Ascending aortic ectasia. Root calibers above. No mural hemorrhage, dissection, rupture or focal aneurysmal dilatation. No acute appearing aortic pathology. Postoperative stomach. The CT anterior chest otherwise normal. Dictated by: Dictated on workstation # [id number]
== END ==
LOC: RAD 09:15
PROVIDERS: ATTEND Internal Medicine Cardiovascular Disease
DX: I71.2 Thoracic aortic aneurysm, without rupture (principal)
CPT/HCPCS: 36415; 71275; 82565; 84520

== ENCOUNTER → 2021-05-20 | Outpatient (CLI) | payer BC ==
[~2021-05-20] VITALS: Ht 175 cm; Wt 113.0 kg
[~2021-05-20] MED LIST changes: -CATHETER FLUSH 10 ML SYR IV PRN; +CATHETER FLUSH 10 ML SYR IVP PRN; -HOLD METFORMIN - RECEIVED CONTRAST 20 ML VIAL IV SCH; -IOHEXOL 350 MG/ML 100 ML (OMNIPAQUE 350) VIAL IV ONE; -NS 100 ML (IVPB) BAG IV ONE; +REGADENOSON 0.4 MG/5 ML SYR (LEXISCAN) IV ONE
[2021-05-20 09:16] VITALS: BP 132/100
--- NOTE | 2021-05-20 11:29 | Cardiology Stress Test Report ---
Stress Test Report Date of Procedure/Referring: Date of Procedure: May 20, 2021 PCP Ruddy Azevedo MD Admitting Physician Shweta Fernandez DO Indications: palpitation Baseline Heart Rate: 57 Baseline Blood Pressure: Blood Pressure Systolic: 132 Blood Pressure Diastolic: 100 Baseline Vitals Vital Signs Date Time Temp Pulse Resp B/P (MAP) Pulse Ox O2 Delivery O2 Flow Rate FiO2 05/20/21 09:16 60 132/100 (111) Baseline EKG: Baseline EKG: NSR Summary After explaining the procedure to the patient, she signed a consent and then brought to the stress nuclear laboratory. Patient received 0.4 mg Lexiscan for stress test, ECG, heart rate and blood pressure were monitored continuously. Resting and stress dose of radio tracer were injected, imaging was acquired and reviewed in short axis, horizontal long axis and vertical long axis views. TID: 1.03 SSS: 5 SDS: 5 EF: 68 1. Patient was unable to exercise beyond 2 minutes and 26 seconds on Randall protocol, test was converted to Lexiscan Myoview stress test. 2. Patient tolerated Lexiscan well 3. Reversible ischemia involving the mid to apical anterior wall 4. Normal left ventricular size, ejection fraction 68% RUDDY AZEVEDO MD May 20, 2021 11:29
== END ==
LOC: CARD 07:45
PROVIDERS: ATTEND Internal Medicine Cardiovascular Disease
DX: I49.9 Cardiac arrhythmia, unspecified (principal); I10 Essential (primary) hypertension
CPT/HCPCS: 78452; 93017; A9502

== ENCOUNTER 2021-05-31 10:00 | Day surgery (SDC) | payer BC ==
[~2021-05-31] VITALS: Ht 176.5 cm; Wt 126.4 kg
[2021-05-31] VITALS (9 sets, daily range): BP systolic 110–137; BP diastolic 67–85
[2021-05-31 08:27] LABS: HEMATOCRIT 39 % (35-52); HEMOGLOBIN 12.7 g/dL (11.5-16.0); MEAN CORPUSCULAR HEMOGLOBIN 30 pg (25-34); MEAN CORPUSCULAR HGB CONC 32 g/dL (32-36); MEAN CORPUSCULAR VOLUME 92 fL (80-99); PLATELET COUNT 249 10^3/uL (130-400); WHITE BLOOD COUNT 6.7 10^3/uL (4.3-11.0)
[2021-05-31 08:28] LABS: BILIRUBIN,URINE NEGATIVE (NEGATIVE); CLARITY,URINE CLEAR; COLOR,URINE YELLOW; GLUCOSE, URINE (UA) NEGATIVE (NEGATIVE); KETONES,URINE NEGATIVE (NEGATIVE); LEUKOCYTE ESTERASE ,URINE NEGATIVE (NEGATIVE); NITRITE,URINE NEGATIVE (NEGATIVE); PROTEIN,URINE NEGATIVE (NEGATIVE)
--- NOTE | 2021-05-31 08:31 | Diagnostic Imaging Report ---
INDICATION: Chest pain and abnormal stress test. TIME OF EXAM: 8:29 AM Correlation is made with prior chest from 03/10/2021. FINDINGS: The heart size is normal. The pulmonary vascularity is unremarkable. The lungs are clear. No infiltrate, effusion or pneumothorax is detected. IMPRESSION: No acute cardiopulmonary process is detected. Dictated by: Dictated on workstation # [id number]
[2021-05-31 08:37] LABS: BACTERIA,URINE NEGATIVE /HPF; SQUAMOUS EPITHELIAL CELL,UR 0-2 /HPF
[2021-05-31 08:44] LABS: PROTHROMBIN TIME PATIENT 13.5 SEC (12.2-14.7)
[2021-05-31 09:02] LABS: ALBUMIN 3.9 GM/DL (3.2-4.5); CALCIUM 9.1 MG/DL (8.5-10.1); CREATININE SERUM 0.71 MG/DL (0.60-1.30); POTASSIUM 3.9 MMOL/L (3.6-5.0); TOTAL PROTEIN 6.9 GM/DL (6.4-8.2)
[~2021-05-31 10:00] MED LIST changes: +AMIT25TA9 PO; +BUPR200T3 PO; -CATHETER FLUSH 10 ML SYR IVP PRN; +DICL75TA2 PO; +HEParin (CATH LAB) 2,000 ML IV ONE; +LEVO50TA PO; +LIDOCAINE 1% INJ 50 ML (XYLOCAINE) VIAL ONE; +MTP25TSR PO; +NS IV 1000 ML 1,000 ML IV SCH; +NS IV 1000 ML 1,000 ML ONE; +PREG50CA65 PO; -REGADENOSON 0.4 MG/5 ML SYR (LEXISCAN) IV ONE; +VITAMIN D2 PO
[2021-05-31] MEDS ORDERED: fentaNYL INJ 100 MCG/2 ML AMP ONE ×2 (10:52→11:37)
[2021-05-31] MEDS ORDERED: VERAPAMIL 5 MG/2 ML (CALAN) VIAL IV ONE (10:52)
[2021-05-31] MEDS ORDERED: MIDAZOLAM 5 MG/5 ML (VERSED) VIAL ONE ×2 (10:52→11:37)
[2021-05-31] MEDS ORDERED: HEParin 1000 UNIT/ML (10ML VIAL) FOR BOLUS ONE (10:52)
[2021-05-31] MEDS ORDERED: NITRO DRIP 25000 MCG/D5W 250 ML IV ONE (10:53)
--- NOTE | 2021-05-31 11:12 | Conscious Sedation/ASA ---
Conscious Sedation Pre-Proced Time 11:11 ASA Score 3 For ASA 3 and 4: Consider anesthesia and medical clearance. Also, for patients with a history of failed moderate sedation consider anesthesia. Airway Lungs Heart ASA score ASA 1: a normal healthy patient ASA 2: a patient with a mild systemic disease (mid diabetes, controlled hypertension, obesity x ASA 3: a patient with a severe systemic disease that limits activity (angina, COPD, prior Myocardial infarction) ASA 4: a patient with an incapacitating disease that is a constant threat to life (CHF, renal failure) ASA 5: a moribund patient not expected to survive 24 hrs. (ruptured aneurysm) ASA 6: a declared brain- patient whose organs are being harvested. For emergent operations, add the letter E after the classification Mallampati Classification Grade 3 Sedation Plan Analgesia, Amnesia, Plan communicated to team members, Discussed options with patient/fam, Discussed risks with patient/fam The patient is an appropriate candidate to undergo the planned procedure, sedation, and anesthesia. The patient immediately re-assessed prior to indication. RUDDY ENRIQUEZ MD May 31, 2021 11:12
[2021-05-31] MEDS ORDERED: ATOR10TA PO (11:49)
--- NOTE | 2021-05-31 11:49 | Discharge Inst-Post CATH ---
Discharge Inst-CATH/EP Problems Reviewed?: Yes Post Cardiac Cath/EP D/C Inst Follow Up/Plan Appointment with Dr. Azevedo's office in 2 to 4 weeks <b>CARDIAC CATH/EP PROCEDURE DISCHARGE INSTRUCTIONS</b> ACTIVITY * Go Home directly and rest. * Limit activity of the leg (or wrist if it was used) for 7 days including aer obics, swimming, jogging, bicycling, etc. * Restrict stair-climbing for 7 days if possible, if not, climb up with your non-cath leg, then bring together on the same step. * Avoid lifting, pushing, pulling or excessive movement of the affected extremi ty for 7 days. * Customary sexual activity may be resumed after 2 days-use caution not to use a position that strains or causes pain to the affected extremity. * No driving for 24 hours. * NO SMOKING. * Avoid straining for bowel movements for 7 days. * Gentle walking on level ground is allowed. * Returning to work will depend on the type of procedure and the results. Your doctor will discuss this with you. CALL YOUR DOCTOR FOR ANY OF THE FOLLOWING: *If bleeding from the puncture site occurs- Apply gentle pressure to site with clean cloth and call your doctor or EMS. * If a knot or lump forms under the skin, increases in size, or causes pain. * If bruising appears to be worsening or moving further down your leg instead of disappearing. * Temperature above 101 F. CARE OF YOUR GROIN INCISION; * Bruising or purple discoloration of the skin near the puncture site is common. * You may shower only, no bathtub bathing for 5 days. Be careful to avoid slipping as your leg may feel stiff. * If a closure device was used on your femoral artery, please see the attached guide regarding care of the device and your leg. * Leave dressing on FOR 24 hours. CARE OF YOUR WRIST INCISION; * Bruising or purple discoloration of the skin near the puncture site is common. * You may shower. * DO NOT submerge wrist. * Leave dressing on FOR 24 hours. RUDDY AZEVEDO MD May 31, 2021 11:49
--- NOTE | 2021-05-31 11:52 | Cardiac Cath Report ---
Cardiac Cath Report Physician (s)/Radio Message Router (s) Physician RUDDY ENRIQUEZ MD Pre-Procedure Diagnosis Pre-Procedure Diagnosis: coronary artery disease, abnormal stress Post-Procedure Note Procedure Start Date: May 31, 2021 Procedure Start Time: 11:50 Name of Procedure: Left heart catheterization Findings/Procedure Note PROCEDURE NOTE: 51-year-old lady with history of hypertension, hyperlipidemia, had an abnormal stress test with anterior wall ischemia, scheduled for cardiac catheterization possible PTCA. After explaining the procedure to the patient, all pros and cons were explained, all questions were answered. The patient signed the consent and then she was placed on the cardiac catheterization laboratory. Groin was prepped SL fashion local anesthesia was used. Attempt to get an access in the right radial artery failed. Sheath placed in the right femoral artery. Juanita right and left catheter were used to access the coronary system. Pigtail was used to access the left ventricular cavity. Left ventriculogram was not done, pressure was measured At the end of the procedure the sheath was removed. Closure device was deployed FINDINGS: Hemodynamics LV 127/13, end-diastolic pressure of 13 Aorta 142/79, mean of 106 ANATOMY: Left Main is free of obstructive disease Left Anterior Descending has mild disease nonobstructive disease Left Circumflex has mild disease nonobstructive disease Right Coronary Artery has mild disease nonobstructive disease LV Gram was not done, pressure was measured CONCLUSION: 1. Mild coronary artery disease nonobstructive disease 2. Normal left ventricular end-diastolic pressure DISCUSSION AND RECOMMENDATION: Medical therapy is recommended no intervention is warranted Anesthesia Type: Conscious Sedation Estimated blood loss (mL): 20 ml Contrast Amount: 45 ml Total Radiation Dose: 463 mGy Post-Procedure Diagnosis Post-operative diagnosis: Chest pain Coronary artery disease Hypertension Hyperlipidemia RUDDY ENRIQUEZ MD May 31, 2021 11:52
[2021-05-31] MEDS ORDERED: PATIENT MAY USE OWN MEDS, ALL PO SCH (12:00)
[2021-05-31] MEDS ORDERED: NS IV 1000 ML 1,000 ML IV SCH (12:00)
== END 2021-05-31 16:00 | disposition home or self-care (01) ==
LOC: CATH 10:00 → SDC 12:01 → CATH 16:00
PROVIDERS: ATTEND Internal Medicine Cardiovascular Disease
DX: I25.10 Atherosclerotic heart disease of native coronary artery without angina pectoris (principal); I10 Essential (primary) hypertension; I65.23 Occlusion and stenosis of bilateral carotid arteries; I49.9 Cardiac arrhythmia, unspecified; E78.2 Mixed hyperlipidemia; E03.9 Hypothyroidism, unspecified; G47.33 Obstructive sleep apnea (adult) (pediatric); R00.2 Palpitations; Z79.899 Other long term (current) drug therapy; Z79.890 Hormone replacement therapy; Z99.89 Dependence on other enabling machines and devices
CPT/HCPCS: 71045; 80053; 80061; 81000; 85027; 85610; 85730; 87081; 93005; 93458; C1760; C1894; 36415

== ENCOUNTER → 2021-06-24 | Outpatient (CLI) | payer BC ==
[~2021-06-24] MED LIST changes: +ATOR10TA PO; -HEParin (CATH LAB) 2,000 ML IV ONE; -LIDOCAINE 1% INJ 50 ML (XYLOCAINE) VIAL ONE; -NS IV 1000 ML 1,000 ML IV SCH; -NS IV 1000 ML 1,000 ML ONE
--- NOTE | 2021-06-24 17:31 | Diagnostic Imaging Report ---
HISTORY: Left foot and ankle pain. TECHNIQUE: 3 views of the left foot COMPARISON: None FINDINGS: No acute fracture or dislocation is seen in the left foot. Alignment appears normal. Joint spaces are preserved. No cortical erosions are seen. There are mild degenerative changes in the midfoot. There is a bone island at the anterior calcaneus. There are small calcaneal enthesophytes. There appears to be mild pes planus. IMPRESSION: 1. Chronic findings in the left foot with no acute osseous abnormality seen. Dictated by: Dictated on workstation # [id number]
--- NOTE | 2021-06-24 17:33 | Diagnostic Imaging Report ---
HISTORY: Left ankle pain TECHNIQUE: 3 views of the left ankle COMPARISON: None FINDINGS: No acute fracture or dislocation is seen in the left ankle. Alignment appears normal. The ankle mortise appears symmetric. There is mild soft tissue swelling about the left ankle. No significant joint effusion is seen. There is an os trigonum. There is calcaneal enthesopathy. A bone island is seen in the anterior calcaneus. IMPRESSION: 1. No acute osseous abnormality is seen in the left ankle. 2. Mild soft tissue swelling about the left ankle. Dictated by: Dictated on workstation # [id number]
== END ==
LOC: RAD 16:22
PROVIDERS: ATTEND Family Medicine
DX: G62.9 Polyneuropathy, unspecified (principal)
CPT/HCPCS: 73610; 73630

== ENCOUNTER → 2021-06-27 | Outpatient (CLI) | payer BC, OTHER ==
--- NOTE | 2021-06-27 16:01 | Diagnostic Imaging Report ---
INDICATION: 51-year-old female lower extremity ankle and foot pain. TECHNIQUE: Segmental pulse pressures were performed of the upper and lower extremities. FINDINGS: Resting Doppler Blood Pressures RIGHT Brachial: 101 mmHg Ankle (Posterior Tibial): 127 mm Hg, index 1.25 Ankle (Dorsalis Pedis): 109 mm Hg, index 1.07 LEFT Brachial: 102 mmHg Ankle (Posterior Tibial): 112 mm Hg, index 1.10 Ankle (Dorsalis Pedis): 122 mm Hg, index 1.20 IMPRESSION: Ankle-brachial indices as above. Ankle-Brachial Index Diagnosis/Interpretation <=0.90 Peripheral Arterial Disease 0.91-0.99 Borderline 1.00-1.40 Normal >1.40 Concern for noncompressible arteries, (assoc with Diabetes Mellitus) Dictated by: Dictated on workstation # [id number]
== END ==
LOC: RAD 14:45
PROVIDERS: ATTEND Family Medicine
DX: G62.9 Polyneuropathy, unspecified (principal)
CPT/HCPCS: 93922

== ENCOUNTER → 2022-01-10 | Outpatient (CLI) | payer BC ==
[~2022-01-10] MED LIST changes: -BUPR200T3 PO; +BUPR200T7 PO
--- NOTE | 2022-01-10 19:05 | Diagnostic Imaging Report ---
INDICATION: Routine screening. COMPARISON: Prior mammograms of 10/31/2019 and 10/20/2018. EXAMINATION: 2D and 3D bilateral screening mammography was performed with CAD. The current study was also evaluated with a Computer Aided Detection (CAD) system. FINDINGS: Scattered fibroglandular densities are identified, bilaterally. The parenchymal pattern is stable. No mass or malignant-appearing microcalcifications are seen. Axillae are unremarkable. IMPRESSION: No mammographic features suspicious for malignancy are identified. ACR BI-RADS Category 1: Negative. Result letter will be mailed to the patient. Note: At least 10% of breast cancer is not imaged by mammography. Dictated by: Dictated on workstation # [id number]
== END ==
LOC: RAD 15:36
PROVIDERS: ATTEND Nurse Practitioner Family
DX: Z12.31 Encounter for screening mammogram for malignant neoplasm of breast (principal)
CPT/HCPCS: 77063; 77067

== ENCOUNTER → 2022-02-28 | Outpatient (CLI) | payer BC ==
--- NOTE | 2022-02-28 16:51 | Diagnostic Imaging Report ---
INDICATION: Knee pain. EXAMINATION: Left knee 02/28/2022. COMPARISON: 04/30/2015. FINDINGS: 3 views of the knee. Mild patellofemoral narrowing and spurring is noted. Minimal narrowing noted in the medial compartment with the lateral joint space preserved. No acute fracture or dislocation. There is a moderate joint effusion. IMPRESSION: Joint effusion with degenerative findings noted. No acute osseous abnormality. Dictated by: Dictated on workstation # [id number]
== END ==
LOC: RAD 14:36
PROVIDERS: ATTEND Registered Nurse Critical Care Medicine
DX: M17.12 Unilateral primary osteoarthritis, left knee (principal); M25.561 Pain in right knee
CPT/HCPCS: 73562

== ENCOUNTER → 2022-03-21 | Outpatient (CLI) | payer BC ==
--- NOTE | 2022-03-21 09:31 | Diagnostic Imaging Report ---
EXAMINATION: Magnetic resonance imaging of the left knee without intravenous contrast DATE: March 21, 2022. COMPARISON: Left knee radiographs February 28, 2022. INDICATION: 51-year-old female, left knee pain. TECHNIQUE: Multiplanar, multisequence non contrast enhanced MR imaging was accomplished. FINDINGS: MENISCI: There is an oblique tear involving the body and posterior horn of the medial meniscus. There is additional radial tearing of the posterior root attachment of the medial meniscus. There is currently 2 to 3 mm medial meniscal extrusion. The lateral meniscus is intact. LIGAMENTS AND TENDONS: The anterior and posterior cruciate ligaments are intact. The medial collateral ligament is intact. The iliotibial band, mid third lateral capsular ligament, fibular collateral ligament, biceps femoris tendon and conjoined tendon are intact. The quadriceps tendon and patella ligament are intact. JOINT: There are areas of full-thickness cartilage loss involving the inferior half of the cartilage of the lateral patellar facet. There is no additional identified cartilage defect. There is no knee joint effusion, prominent synovitis, or intra-articular body. BONE: There is unremarkable bone marrow signal. Specifically, negative for fracture, osteomyelitis, osteonecrosis, or marrow replacing process. BURSAE AND SOFT TISSUES: There is a Jean Baptiste's cyst. There is nonspecific prepatellar subcutaneous edema. IMPRESSION: 1. Oblique tear involving the body and posterior horn of the medial meniscus with additional radial oriented tear of the posterior root attachment of the medial meniscus. There is currently 2 to 3 mm medial meniscal extrusion. 2. Grossly intact lateral meniscus. 3. Intact anterior and posterior cruciate ligaments. Additional ligaments and tendons are intact. 4. Prominent cartilage loss of the inferior aspect of the lateral patellar facet with otherwise intact articular cartilage. No sizable knee joint effusion. 5. No acute fracture, bone contusion, stress reaction, or evidence of osteonecrosis. 6. Jean Baptiste's cyst. Dictated by: Dictated on workstation # [id number]
== END ==
LOC: RAD 07:46
PROVIDERS: ATTEND Nurse Practitioner
DX: S83.232A Complex tear of medial meniscus, current injury, left knee, initial encounter (principal); M22.42 Chondromalacia patellae, left knee; M71.22 Synovial cyst of popliteal space [Baker], left knee; X58.XXXA Exposure to other specified factors, initial encounter
CPT/HCPCS: 73721

== ENCOUNTER 2022-04-24 05:39 | Outpatient (CLI) | payer BC ==
[~2022-04-24] VITALS: Ht 175.3 cm; Wt 113.6 kg
[2022-04-25] MEDS ORDERED: PHEN1CPM3 PO (12:12)
[2022-04-25] MEDS ORDERED: PHEN1CPM PO (12:12)
[2022-04-25] MEDS ORDERED: HYDR12.56 PO (12:12)
[2022-04-25] MEDS ORDERED: MIRA50TA PO (12:12)
[2022-04-25] MEDS ORDERED: TRM50T PO (12:12)
== END 2022-04-25 12:16 | disposition home or self-care (01) ==
LOC: PREOP 05:39
PROVIDERS: ATTEND Orthopaedic Surgery
DX: Z01.818 Encounter for other preprocedural examination (principal)

== ENCOUNTER 2022-04-30 08:14 | Day surgery (SDC) | payer BC ==
[~2022-04-30] VITALS: Ht 175.3 cm; Wt 113.6 kg
[2022-04-30] VITALS (8 sets, daily range): BP systolic 106–155; BP diastolic 70–93
[~2022-04-30 08:14] MED LIST changes: +HYDR12.56 PO; +HYDROcodone/APAP 7.5 MG/325 MG (LORTAB, LORCET PLUS) TABLET PO PRN; +PHEN1CPM PO; +PHEN1CPM3 PO
[2022-04-30] MEDS ORDERED: ceFAZolin INJECTION 2,000 MG in NS (IVPB) 50 ML IV ONE (08:45)
[2022-04-30] MEDS ORDERED: LACTATED RINGERS 1,000 ML IV PRN (08:45)
--- NOTE | 2022-04-30 09:20 | Progress Note-Pre Operative ---
Pre-Operative Progress Note Date of Available H&P: Apr 14, 2022 Date H&P Reviewed: Apr 30, 2022 Time H&P Reviewed: 09:20 Changes from last HP none Pre-Operative Diagnosis: left knee medial meniscus tear and chondromalacia TAYA LONGORIA MD Apr 30, 2022 09:20
--- NOTE | 2022-04-30 09:21 | Progress Note-Post Operative ---
Post-Operative Progess Note Surgeon (s)/Motor Teacher (s) Surgeon TAYA LONGORIA MD Motor Teacher: Alen Allen Pre-Operative Diagnosis left knee medial meniscus tear and chondromalacia Post-Operative Diagnosis left knee medial meniscus tear and chondromalacia of the medial femoral condyle, lateral tibial plateau and trochle Procedure & Operative Findings Date of Procedure 04/30/22 Procedure Performed/Findings left knee arthroscopic partial medial meniscectomy and chondroplassty of the medial femoral condyle, lateral tibial plateau and trochlea Anesthesia Type GETA Estimated Blood Loss Estimated blood loss (mL): miinimal Specimens/Packing Specimens Removed none Packing: none TAYA LONGORIA MD Apr 30, 2022 09:21
[2022-04-30] MEDS ORDERED: morphine PF (DURAMORPH) 10 MG/10 ML AMP ONE (09:23)
[2022-04-30] MEDS ORDERED: BUPIVACAINE 0.25% 30 ML (SENSORCAINE) VIAL ONE (09:23)
[2022-04-30] MEDS ORDERED: proPOfol 200 MG/20 ML (DIPRIVAN) VIAL IV ONE (09:39)
[2022-04-30] MEDS ORDERED: fentaNYL INJ 100 MCG/2 ML AMP ONE (09:39)
[2022-04-30] MEDS ORDERED: ONDANSETRON 4 MG/2 ML (SDV) Z0FRAN ONE (09:39)
[2022-04-30] MEDS ORDERED: SEVOFLURANE (ULTANE) 15 ML INHAL SOLN ONE ×2 (09:39→10:27)
[2022-04-30] MEDS ORDERED: MIDAZOLAM 2 MG/2 ML (VERSED) VIAL ONE (09:39)
[2022-04-30] MEDS ORDERED: LIDOCAINE PF 2% 5 ML (XYLOCAINE) VIAL ONE (09:39)
[2022-04-30] MEDS ORDERED: HYDR-3817 PO (10:00)
[2022-04-30] MEDS ORDERED: BUPIVACAINE 0.25% 30 ML (SENSORCAINE) VIAL INJ ONE (10:17)
[2022-04-30] MEDS ORDERED: morphine PF (DURAMORPH) 10 MG/10 ML AMP INJ ONE (10:17)
--- NOTE | 2022-04-30 10:33 | Anesthesia-General Post-Op ---
General Patient Condition Mental Status/LOC: Same as Preop Cardiovascular: Satisfactory Nausea/Vomiting: Absent Respiratory: Satisfactory Pain: Controlled Complications: Absent Post Op Complications Complications None Follow Up Care/Instructions Patient Instructions None needed. Anesthesia/Patient Condition Patient Condition Patient is doing well, no complaints, stable vital signs, no apparent adverse anesthesia problems. No complications reported per nursing. BARTOLOME BARRERA CRNA Apr 30, 2022 10:33
[2022-04-30] MEDS ORDERED: MEPERIDINE (DEMEROL) INJ 50 MG/ML IVP ONE (10:45)
[2022-04-30] MEDS ORDERED: fentaNYL INJ 100 MCG/2 ML AMP IVP ONE (10:45)
[2022-04-30] MEDS ORDERED: ONDANSETRON 4 MG/2 ML (SDV) Z0FRAN IVP PRN (10:45)
[2022-04-30] MEDS ORDERED: morphine INJ 10 MG/ML 1ML (SYR OR VIAL) IVP ONE (10:45)
[2022-04-30] MEDS ORDERED: morphine INJ 10 MG/ML 1ML (SYR OR VIAL) ONE (10:52)
--- NOTE | 2022-04-30 14:55 | Physical Therapy Ortho Eval ---
PT Orthopedic Evaluation Type of Surgery Knee Scope Prior Level of Function Current Living Status: Significant Other Locomotion (Upon Admit): Independent Established Durable Medical Eq: None Patient was educated on the improved ease on stairs with crutches, but she ins isted on using a FWW. Patient was educated on use of FWW and she reports "we will stop somewhere on the way home and get one." Subjective Subjective Patient lying on left side in bed upon PT arrival, agreeable to treatment. Patient rates pain at 7/10 in the left knee currently. Entry Into Home: Stairs With Railing Steps Into Home: 4 Steps Inside Home: 0 Steps Accessories: Railing Present Motor Control Motor Control: Motor Control WNL ROM ROM: WFL, except focal deficit Strength Strength: Gen Weak,No Focal Deficit Transfer SCALE: Activities may be completed with or without assistive devices. 3-Zdodwlbyqn-gojwery completes the activity by him/herself with no assistance from a helper. 5-Set-up or Clean-up Assistance-helper sets up or cleans up; patient completes activity. [place] assists only prior to or following the activity. 4-Supervision or Touching Assistance-helper provides verbal cues and/or touching/steadying and/or contact guard assistance as patient completes activity. Assistance may be provided throughout the activity or intermittently. 3-Partial/Moderate Assistance-helper does LESS THAN HALF the effort. [place] l ifts, holds or supports trunk or limbs, but provides less than half the effort. 2-Substantial/Maximal Assistance-helper does MORE THAN HALF the effort. [place] lifts or holds trunk or limbs and provides more than half the effort. 8-Lysobtwya-hcsxlm does ALL the effort. Patient does none of the effort to complete the activity. Or, the assistance of 2 or more helpers is required for t he patient to complete the activity. If activity was not attempted, code reason: 7-Patient Refused. 9-Not Applicable-not attempted and the patient did not perform the activity before the current illness, exacerbation or injury. 10-Not Attempted due to Environmental Limitations-(lack of equipment, weather restraints, etc.). 88-Not Attempted due to Medical Conditions or Safety Concerns. Transfers (B, C, W/C) (QC): 4 Gait Gait Assistive Device: FWW Right Lower Extremity: Right Weight Bearing Status RLE: Full Weight Bearing Left Lower Extremity: Left Weight Bearing Status LLE: Weight Bearing/Tolerated Gait (QC): 4 Distance: 30 feet Stairs #of Steps: 4 Walking Assistive Device: Walker Assessment/Goals Goal Time Frame: 1 Visit Safe Ambulation: Yes Plan Treatment Plan: Discharge PT/Family Agrees to Plan: Yes Time Time In: 1210 Time Out: 1227 Total Billed Treatment Time: 17 Billed Treatment Time Visit, LAYO Minaya PT Apr 30, 2022 14:55
--- NOTE | 2022-04-30 15:13 | OPERATIVE REPORT ---
DATE OF SERVICE: 04/30/2022 PREOPERATIVE DIAGNOSES: 1. Left knee medial meniscus tear. 2. Left knee chondromalacia of the medial femoral condyle. 3. Left knee chondromalacia of the patella. POSTOPERATIVE DIAGNOSES: 1. Left knee medial meniscus tear. 2. Left knee chondromalacia of medial femoral condyle. 3. Left knee chondromalacia of lateral tibial plateau. 4. Left knee chondromalacia of the trochlea. PROCEDURES: 1. Left knee arthroscopic partial medial meniscectomy. 2. Left knee arthroscopic chondroplasty of medial femoral condyle. 3. Left knee arthroscopic chondroplasty of the lateral tibial plateau. 4. Left knee arthroscopic chondroplasty of the trochlea. SURGEON: James Longoria MD HEATING AND REFRIGERATION INSPECTOR: Alen Allen, who assisted throughout the procedure and closed the incisions. ANESTHESIA: General endotracheal by REPAIRING CALIBRATOR. TOURNIQUET TIME: Not applicable. ESTIMATED BLOOD LOSS: Minimal. DRAINS: None. COMPLICATIONS: None. POSTOPERATIVE PLAN: Routine arthroscopy protocol. The patient was transported to the recovery room awake and in stable condition. STATEMENT OF MEDICAL NECESSITY: The patient is a 52-year-old female with complaints of left medial knee pain, catching, locking and swelling. She had patellofemoral crepitus and pain with patellar loading. She also had some mild medial and patellofemoral joint space narrowing. She tried rest, activity modifications and anti-inflammatories without relief. Due to functional impairment and failure to improve with conservative measures, the patient elected to proceed with surgical intervention. Examination under anesthesia revealed range of motion of 0/0/125 with negative Tricia, negative anterior and posterior drawer. No varus or valgus laxity, negative pivot shift. Arthroscopic findings of the patella demonstrated grade IV chondral loss inferiorly in a 10 x 10 area. The trochlea demonstrated grade 3 chondral flap superiorly in a 10 x 10 area. The medial and lateral gutters were clear. The ACL and PCL were intact. The lateral compartment demonstrated grade 2 chondral flaps over the central portion of the tibial plateau in a 10 x 10 area. No meniscal pathology was noted laterally. The medial compartment demonstrated grade 2 chondral flaps of the central portion of the femoral condyle in a 10 x 10 area and a complex tear of the posterior horn of the medial meniscus involving approximately one-half of the posterior horn. DESCRIPTION OF PROCEDURE: After risks and benefits of the procedure were discussed and questions were answered and informed consent was signed and placed on chart, operative site was confirmed in the preoperative holding initialed by surgeon. The patient was then transported to the operating room and after adequate levels of general endotracheal anesthetic were obtained, timeout was called, confirming the operative site. Examination under anesthesia was performed with the above findings noted. The left lower extremity was prepped and draped in the usual sterile fashion. The knee joint was injected with 60 mL of fluid and a standard inferolateral portal was arthroscope under direct visualization, inferior medial portal was created. The menisci cruciates carefully probed with the above findings noted. The unstable chondral flaps on the trochlea were debrided with a shaver back to a stable edge. Scope was then redirected into the lateral compartment and unstable chondral flaps in the lateral tibial plateau were debrided with a shaver back to a stable edge. Scope was then redirected into the medial compartment and unstable chondral flaps on the medial femoral condyle were debrided with a shaver back to a stable edge and the posterior horn of the medial meniscus was debrided with a biter and a shaver back to a stable edge. This was carefully probed with no further tearing or instability noted. The knee was copiously irrigated. The portal sites were closed with 4-0 nylon in simple interrupted fashion. Knee was injected with Duramorph. The portal sites were infiltrated with plain Marcaine. A soft dressing was applied and the patient was transported to the recovery room awake and in stable condition. Job ID: [id number] DocumentID: [id number] Dictated Date: 04/30/2022 10:38:55 Inventory Technician Date: 04/30/2022 15:11:00 Dictated By: JAMES LONGORIA MD
== END 2022-04-30 12:48 | disposition home or self-care (01) ==
LOC: SDC 08:14
PROVIDERS: ATTEND Orthopaedic Surgery
DX: S83.232A Complex tear of medial meniscus, current injury, left knee, initial encounter (principal); M22.42 Chondromalacia patellae, left knee; E66.9 Obesity, unspecified; X58.XXXA Exposure to other specified factors, initial encounter; Z68.37 Body mass index [BMI] 37.0-37.9, adult
CPT/HCPCS: 87081

== ENCOUNTER → 2022-08-04 | Outpatient (CLI) | payer BC ==
[~2022-08-04] MED LIST changes: +HYDR-3817 PO; -HYDROcodone/APAP 7.5 MG/325 MG (LORTAB, LORCET PLUS) TABLET PO PRN
--- NOTE | 2022-08-04 11:00 | Diagnostic Imaging Report ---
PROCEDURE: MRI lumbar spine. TECHNIQUE: Multiplanar, multisequence MRI of the lumbar spine was performed without contrast. INDICATION: Right lower extremity radiculopathy. COMPARISON: None FINDINGS: For the purposes of this exam, last well-formed disc space is noted the L5-S1 level. Evaluation static alignment shows mild levoscoliotic deformity. There is no significant anterolisthesis or retrolisthesis. There is no evidence of jumped facets. Vertebral body heights are maintained. There is no acute fracture. Evaluation marrow signal demonstrates multilevel Modic type endplate changes. There is mild multilevel intervertebral disc height loss as well as multilevel anterior and posterior disc bulging. Visualized portions of distal cord are unremarkable. Conus terminates approximately the L1-L2 level. No abnormal intrathecal filling defect is seen. Pre and paravertebral soft tissue structures are unremarkable. Axial images demonstrate the following: T12-L1: There is no large disc bulge or focal protrusion. There is no significant spinal canal or neural foraminal stenosis. L1-L2: There is small right paracentral posterior disc protrusion, but no significant spinal canal or neural foraminal stenosis. L2-L3: There is broad-based posterior disc bulge and bilateral ligamentum flavum laxity and facet arthropathy. As a result, there is mild narrowing of spinal canal and bilateral neural foramen. L3-L4: There is broad-based posterior disc bulge and bilateral ligamentum flavum laxity and facet arthropathy. As a result, there is mild narrowing of spinal canal and left neural foramen. There is also moderate stenosis on the right. L4-L5: There is asymmetric left posterior lateral endplate osteophyte formation. There is no large disc bulge. There is also bilateral facet arthropathy. As a result, there is asymmetric moderate stenosis of the left neural foramen. There is also mild narrowing on the right. Spinal canal is minimally narrowed. L5-S1: There is no large disc bulge or focal protrusion. There is bilateral facet arthropathy, but no significant spinal canal or neural foraminal stenosis. IMPRESSION: 1. Multilevel degenerative changes of the lumbar spine as described above. 2. No acute fracture or dislocation. Dictated by: Dictated on workstation # [id number]
== END ==
LOC: RAD 08:02
PROVIDERS: ATTEND Orthopaedic Surgery
DX: M47.26 Other spondylosis with radiculopathy, lumbar region (principal); M51.16 Intervertebral disc disorders with radiculopathy, lumbar region; M24.28 Disorder of ligament, vertebrae; M48.061 Spinal stenosis, lumbar region without neurogenic claudication; M47.27 Other spondylosis with radiculopathy, lumbosacral region
CPT/HCPCS: 72148

== ENCOUNTER → 2022-12-29 | Outpatient (CLI) | payer BC ==
[~2022-12-29] MED LIST changes: -LOSA100T57 PO; +LOSA100T58 PO; -PREG50CA65 PO; +PREG50CA66 PO
--- NOTE | 2022-12-30 11:32 | Diagnostic Imaging Report ---
INDICATION: Bilateral digital 2-D and 3-D screening with CAD. COMPARISON: 12/2021, 04/30/2019 and 09/2018. FINDINGS: Density 1. No breast mass, spiculated lesion, architectural distortion, suspicious calcifications or changes to suggest malignancy. IMPRESSION: ACR BI-RADS Category 1: Negative. Result letter will be mailed to the patient. Note: At least 10% of breast cancer is not imaged by mammography. BI-RADS Category 1 Dictated by: Dictated on workstation # [id number]
== END ==
LOC: RAD 10:33
PROVIDERS: ATTEND Nurse Practitioner Family
DX: Z12.31 Encounter for screening mammogram for malignant neoplasm of breast (principal)
CPT/HCPCS: 77063; 77067